=== PATIENT | male | born 1955 | race African-American/Black ===

== ENCOUNTER → 2017-12-10 | Outpatient (CLI) | payer OTHER, MEDICAID ==
[~2017-12-10] MED LIST: NS 250 ML IV 250 ML IV ONE
[2017-12-10 08:48] LABS: BASOPHILS # (AUTO) 0.1 X10^3/uL (0.0-0.1); BASOPHILS % (AUTO) 1.8 % (0.2-1.0); EOSINOPHILS # (AUTO) 0.1 x10^3/uL (0.0-0.2); EOSINOPHILS % (AUTO) 1.4 % (0.9-2.9); HEMOGLOBIN 10.1 g/dL (13.5-18.0); LYMPHOCYTES % (AUTO) 20.6 % (21.0-51.0); MEAN CORPUSCULAR HEMOGLOBIN 30.2 pg (27.0-34.0); MEAN CORPUSCULAR HGB CONC 33.7 g/dL (33.0-35.0); MEAN CORPUSCULAR VOLUME 89.6 fL (80.0-100.0); MEAN PLATELET VOLUME 8.2 fL (7.4-11.0); MONOCYTES # (AUTO) 0.6 x10^3/uL (0.3-0.8); MONOCYTES % (AUTO) 11.2 % (0.0-13.0); NEUTROPHILS # (AUTO) 3.3 x10^3/uL (2.2-4.8); PLATELET COUNT 246 X10^3/uL (150.0-450.0); RED BLOOD COUNT 3.35 X10^6/uL (4.7-6.0); RED CELL DISTRIBUTION WIDTH 14.3 % (11.6-16.5)
[2017-12-10 09:11] LABS: PREALBUMIN 14.6 mg/dL (18-35.7)
[2017-12-10 09:19] LABS: ALANINE AMINOTRANSFERASE 23 Units/L (12-78); ALBUMIN 3.2 g/dL (3.4-5.0); ALKALINE PHOSPHATASE 37 Units/L (46-116); ASPARTATE AMINO TRANSFERASE 21 Units/L (15-37); BLOOD UREA NITROGEN 12 mg/dL (7-18); CALCIUM 8.7 mg/dL (8.5-10.1); CARBON DIOXIDE 30.9 mmol/L (21-32); CHLORIDE 99 mmol/L (98-107); COR CA(FOR HYPOALB) 9.3 mg/dL (8.5-10.1); CREATININE 0.98 mg/dL (0.70-1.30); SODIUM 137 mmol/L (136-145); eGFR BLACK RACES > 60 (>60); eGFR NON BLACK RACES > 60 (>60)
--- NOTE | 2017-12-10 11:04 | RAD ---
HISTORY: Chest pain Study: Two views of the chest Comparison: None Findings: The trachea is midline. The cardiac silhouette is unremarkable. The lungs are clear without focal i nfiltrate or effusion. IMPRESSION: 1. No acute cardiopulmonary disease. Reported By:
--- NOTE | 2017-12-10 13:02 | CT ---
HISTORY: Abdominal distension and left-sided pain with weight loss. Study: CT abdomen and pelvis with contrast Comparison: None. Technique: Multiple axial images of the abdomen and pelvis were obtained from the lung bases to the pubic symphy sis after the administration of IV contrast. Dose reduction techniques including Automated Exposure Control (AEC) and adjustment of mA and kV were utilized. Findings: Posterior right lower lobe tree-in-bud opacities. Remaining lung bases are unremarkable. The liver, s pleen, pancreas, kidneys, and adrenal glands are unremarkable in their CT appearance. The gallbladder is unremarkable in its CT appearance. Limited evaluation of the large and small bowel secondary to large amounts of loculated gelatinous material causing displacement and mass effect. No obvious mass to suggest source. The bladder and prostate gland appear normal. Degenerative changes of the spine. No aggressive osseous lesions. 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 However, the appendix is not well identified. Recommend s oft tissue sampling for further characterization. Reported By:
== END ==
LOC: RAD 08:15
PROVIDERS: ATTEND Obstetrics & Gynecology Obstetrics
DX: R63.4 Abnormal weight loss (principal); K43.9 Ventral hernia without obstruction or gangrene
CPT/HCPCS: 36415; 71046; 74160; 80053; 84134; 85025; A4222

== ENCOUNTER → 2017-12-18 | Outpatient (CLI) | payer OTHER, MEDICAID | LOC: LAB 10:40 | PROVIDERS: ATTEND Surgery | DX: D64.9 Anemia, unspecified (principal); R19.00 Intra-abdominal and pelvic swelling, mass and lump, unspecified site; C18.1 Malignant neoplasm of appendix | CPT/HCPCS: 36415; 82378; 86316 ==

== ENCOUNTER 2017-12-28 08:37 | Day surgery (SDC) | payer OTHER, MEDICAID ==
[~2017-12-28 08:37] MED LIST changes: +DIPRIVAN VIAL 20 ML ONE; -NS 250 ML IV 250 ML IV ONE
[2017-12-28] MEDS ORDERED: D5 LR 1000 ML 1,000 ML IV ONE (08:43)
[2017-12-28 10:06] VITALS: BP 116/74
== END 2017-12-28 10:25 | disposition home or self-care (01) ==
LOC: SURG1 08:37
PROVIDERS: ATTEND Surgery
DX: R19.00 Intra-abdominal and pelvic swelling, mass and lump, unspecified site (principal); C78.6 Secondary malignant neoplasm of retroperitoneum and peritoneum; R97.0 Elevated carcinoembryonic antigen [CEA]; K52.89 Other specified noninfective gastroenteritis and colitis
CPT/HCPCS: A4217; J3490; J7120

== ENCOUNTER → 2018-01-10 | Outpatient (CLI) | payer OTHER, MEDICAID ==
[2017-12-28 10:06] VITALS: BP 116/74
[2018-01-10 14:01] LABS: BILIRUBIN,URINE NEGATIVE (NEGATIVE); BLOOD/HEMOGLOBIN,URINE 3+ (NEGATIVE); GLUCOSE, URINE NEGATIVE (NEGATIVE); KETONES,URINE NEGATIVE (NEGATIVE); LEUKOCYTE ESTERASE ,URINE 2+ (NEGATIVE); NITRITES,URINE NEGATIVE (NEGATIVE); PROTEIN,URINE 3+ (NEGATIVE); UROBILINOGEN,URINE NORMAL (NORMAL)
[2018-01-10 14:03] LABS: BASOPHILS % (AUTO) 0.6 % (0.2-1.0); EOSINOPHILS % (AUTO) 0.5 % (0.9-2.9); HEMATOCRIT 33.7 % (42.0-54.0); HEMOGLOBIN 11.5 g/dL (13.5-18.0); LYMPHOCYTES # (AUTO) 0.6 X10^3/uL (1.3-2.9); LYMPHOCYTES % (AUTO) 12.8 % (21.0-51.0); MEAN CORPUSCULAR HEMOGLOBIN 30.9 pg (27.0-34.0); MEAN PLATELET VOLUME 8.1 fL (7.4-11.0); MONOCYTES # (AUTO) 0.4 x10^3/uL (0.3-0.8); MONOCYTES % (AUTO) 8.4 % (0.0-13.0); NEUTROPHILS # (AUTO) 3.6 x10^3/uL (2.2-4.8); NEUTROPHILS % (AUTO) 77.7 % (42.0-75.0); PLATELET COUNT 247 X10^3/uL (150.0-450.0); RED BLOOD COUNT 3.71 X10^6/uL (4.7-6.0); RED CELL DISTRIBUTION WIDTH 14.1 % (11.6-16.5); WHITE BLOOD COUNT 4.6 X10^3/uL (3.6-10.0)
[2018-01-10 14:14] LABS: ALANINE AMINOTRANSFERASE 23 Units/L (12-78); ALBUMIN 3.5 g/dL (3.4-5.0); ALKALINE PHOSPHATASE 48 Units/L (46-116); ASPARTATE AMINO TRANSFERASE 17 Units/L (15-37); BLOOD UREA NITROGEN 20 mg/dL (7-18); CALCIUM 9.6 mg/dL (8.5-10.1); CARBON DIOXIDE 35.9 mmol/L (21-32); CHLORIDE 97 mmol/L (98-107); COR NA(FOR HYPERGLY) 139 mmol/L (136-145); CREATININE 1.19 mg/dL (0.70-1.30); SODIUM 138 mmol/L (136-145); TOTAL PROTEIN 8.7 g/dL (6.4-8.2); eGFR BLACK RACES > 60 (>60); eGFR NON BLACK RACES > 60 (>60)
[2018-01-10 14:20] LABS: APPEARANCE,URINE HAZY (CLEAR); COLOR,URINE YELLOW (YELLOW)
[2018-01-10 14:21] LABS: BACTERIA,URINE TRACE /HPF (NEGATIVE); SQUAMOUS EPITHELIAL CELL,UR FEW /HPF (NEGATIVE)
[2018-01-10 14:24] LABS: MUCUS,URINE MODERATE /HPF (NEGATIVE); TRICHOMONAS,URINE FEW /HPF (NEGATIVE)
== END ==
LOC: LAB 13:23
PROVIDERS: ATTEND Surgery
DX: Z01.818 Encounter for other preprocedural examination (principal); Z01.810 Encounter for preprocedural cardiovascular examination; R19.09 Other intra-abdominal and pelvic swelling, mass and lump; Z79.899 Other long term (current) drug therapy; C67.0 Malignant neoplasm of trigone of bladder
CPT/HCPCS: 36415; 80053; 81001; 85025; 85610; 86850; 86900; 86901; 86922; 87086; 93005; 93010

== ENCOUNTER 2018-01-14 07:34 | Inpatient (IN) | payer OTHER, MEDICAID ==
[2018-01-14] MEDS ORDERED: D5 LR 1000 ML 1,000 ML IV ONE (07:48)
[2018-01-14] MEDS ORDERED: FENTANYL INJ 250 mcg ONE (08:17)
[2018-01-14] MEDS ORDERED: FLAGYL IV PREMIX 500 MG BAG 500 MG/100 ML BAG IV ONE (08:42)
[2018-01-14] MEDS ORDERED: ANCEF 1 GM IV PREMIX* 1 GM/50 ML BAG IV ONE (08:43)
[2018-01-14] MEDS ORDERED: ADRENALINE CHL INJ ONE (09:04)
[2018-01-14] MEDS ORDERED: MARCAINE 0.25% INJ ONE (09:04)
[2018-01-14] MEDS ORDERED: LR 1000 ML IV 1,000 ML IV ONE (09:43)
[2018-01-14] MEDS ORDERED: NS 1000 ML 1,000 ML ONE ×2 (09:47→11:08)
[2018-01-14] MEDS ORDERED: BACITRACIN VIAL ONE (10:03)
[2018-01-14] MEDS ORDERED: REGLAN INJ 10 MG VIAL IVP PRN (10:58)
[2018-01-14] MEDS ORDERED: ZOFRAN INJ 4 MG VIAL IVP PRN (10:58)
[2018-01-14] MEDS ORDERED: PHENERGAN INJ 25 MG IVP PRN (10:58)
[2018-01-14] MEDS ORDERED: BENADRYL INJ 50 MG VIAL IVP PRN (10:58)
[2018-01-14] MEDS ORDERED: DILAUDID INJ IVP PRN (10:58)
[2018-01-14] MEDS ORDERED: NS IRRIGATION 1000 ML 1,000 ML with BACITRACIN VIAL 50,000 UNT IR ONE ×2 (11:35)
[2018-01-14] MEDS ORDERED: NAROPIN EPIDURAL 0.2% 400 MG, NS 250 ML IV 200 ML EPI PRN ×2 (12:00)
[2018-01-14] MEDS ORDERED: Q PUMP EPI ONE (12:00)
[2018-01-14] MEDS ORDERED: NEO-SYNEPHRINE INJ ONE (12:44)
[2018-01-14] MEDS ORDERED: EPHEDRINE SULFATE INJ ONE (12:44)
[2018-01-14] MEDS ORDERED: NORCURON INJ 10 MG VIAL ONE (12:44)
[2018-01-14] MEDS ORDERED: VERSED ONE (12:44)
[2018-01-14] MEDS ORDERED: DIPRIVAN VIAL ONE (12:44)
[2018-01-14] MEDS ORDERED: SUPRANE IN ONE (12:44)
[2018-01-14] MEDS ORDERED: NEOSTIGMINE INJ ONE (12:44)
[2018-01-14] MEDS ORDERED: ROBINUL ONE (12:44)
[2018-01-14] MEDS ORDERED: XYLOCAINE 2 % (PLAIN) ONE (12:44)
[2018-01-14] MEDS ORDERED: QUELICIN (OR ANECTINE) ONE (12:44)
--- NOTE | 2018-01-14 13:20 | OR.GENERIC ---
Post-Op Note Generic - Post-Op Note Operative Report: exploratory laparotomy , evacuation of large pseudomyxoma . peritoneal Bx . closure of enterotomy x 2 findings : extensive carcinomatosis with advanced ca . primary not certain ! appendix or cecum. large Pseudo myxoma . extensive adhesions involving small and large bowel with bowel obstruction at several levels . EBL 200 cc . prognosis is poor . will keep NPO . TPN omcology consult .
--- NOTE | 2018-01-14 13:23 | RAD ---
HISTORY: NG tube placement Study: AP lower chest/upper abdomen Comparison: None Findings: The nasogastric tube tip is in the distal esophagus 2 cm proximal to the gastroesophageal junction. A dvancement is recommended. IMPRESSION: NG tube tip within the distal esophagus just proximal to the gastroesophageal junction. Significant e nhancement is recommended. Reported By:
--- NOTE | 2018-01-14 13:24 | RAD ---
History: PICC line placement Study: Chest single view Findings: Single AP view of the chest is compared to previous study of 12/10/2017. Heart and mediasti nal structures maintain a normal appearance. There appears to been interval placement of a nasogastri c tube however the tip appears to be within the distal esophagus and not within the stomach. A right internal jugular catheter is in place tip of at the caval atrial junction. No PICC line is present. T here is added density in the right infrahilar area new since the previous study which may represent f ocal pneumonia. There are no evident pleural effusions. Impression: Nasogastric tube tip in the distal esophagus. Right internal jugular catheter in appropriate position. Probable limited right infrahilar pneumonia. Reported By:
[2018-01-14] MEDS ORDERED: D5 1/2 NS 1000 ML 1,000 ML IV SCH (14:00)
[2018-01-14] MEDS ORDERED: ANCEF VIAL 1 GM 1 GM in NS 50 ML IV + SPIKE MINIBAG* 50 ML IV SCH (14:00)
[2018-01-14 14:18] LABS: BASOPHILS % (AUTO) 0.3 % (0.2-1.0); EOSINOPHILS % (AUTO) 0.1 % (0.9-2.9); HEMATOCRIT 27.9 % (42.0-54.0); HEMOGLOBIN 9.7 g/dL (13.5-18.0); LYMPHOCYTES # (AUTO) 0.4 X10^3/uL (1.3-2.9); LYMPHOCYTES % (AUTO) 8.5 % (21.0-51.0); MEAN CORPUSCULAR HEMOGLOBIN 31.2 pg (27.0-34.0); MEAN CORPUSCULAR HGB CONC 34.9 g/dL (33.0-35.0); MEAN CORPUSCULAR VOLUME 89.4 fL (80.0-100.0); MEAN PLATELET VOLUME 8.2 fL (7.4-11.0); MONOCYTES # (AUTO) 0.2 x10^3/uL (0.3-0.8); MONOCYTES % (AUTO) 3.3 % (0.0-13.0); NEUTROPHILS % (AUTO) 87.8 % (42.0-75.0); PLATELET COUNT 194 X10^3/uL (150.0-450.0); RED BLOOD COUNT 3.12 X10^6/uL (4.7-6.0); RED CELL DISTRIBUTION WIDTH 14.1 % (11.6-16.5); WHITE BLOOD COUNT 4.5 X10^3/uL (3.6-10.0)
[2018-01-14 14:27] LABS: ALANINE AMINOTRANSFERASE 18 Units/L (12-78); ALBUMIN 2.6 g/dL (3.4-5.0); ALKALINE PHOSPHATASE 38 Units/L (46-116); ASPARTATE AMINO TRANSFERASE 14 Units/L (15-37); BLOOD UREA NITROGEN 26 mg/dL (7-18); CALCIUM 8.3 mg/dL (8.5-10.1); CARBON DIOXIDE 34.2 mmol/L (21-32); CHLORIDE 100 mmol/L (98-107); COR CA(FOR HYPOALB) 9.4 mg/dL (8.5-10.1); COR NA(FOR HYPERGLY) 140 mmol/L (136-145); CREATININE 1.02 mg/dL (0.70-1.30); SODIUM 139 mmol/L (136-145); TOTAL PROTEIN 6.7 g/dL (6.4-8.2); eGFR BLACK RACES > 60 (>60); eGFR NON BLACK RACES > 60 (>60)
[2018-01-14] MEDS: LOVENOX INJ 30 MG SYR SC SCH (14:45)
--- NOTE | 2018-01-14 14:55 | RAD ---
HISTORY: NG tube placement Study: ZANA with high center Comparison: 01/14/2018 at 1:12 p.m.. Findings: Nasogastric tube has been advanced with the tip at the level of the greater curvature of the gastric fundus. The side hole is just distal to the EG junction. The tube may be more effective if advanced a nother 10-12 cm. IMPRESSION: NG tube as described. The tube may be more effective if advanced another 10-12 cm. Reported By:
[2018-01-14] MEDS: D5 1/2 NS + KCL 20 MEQ/L 1,000 ML IV SCH (14:57)
[2018-01-14] MEDS: ANCEF VIAL 1 GM 1 GM in NS 100 ML IV + SPIKE MINIBAG* 100 ML IV SCH ×2 (14:57→21:43)
[2018-01-14] MEDS: NS 1000 ML 1,000 ML IV SCH ×2 (14:58→21:48)
[2018-01-14] MEDS: DILAUDID INJ IVP PRN (15:51)
[2018-01-14] MEDS ORDERED: CLEOCIN VIAL 600 MG 900 MG in D5W 50 ML IV 50 ML IV ONE (17:06)
[2018-01-14] MEDS ORDERED: CLEOCIN 300 MG IV PREMIX 300 MG/50 ML BAG IV ONE (17:16)
[2018-01-14] MEDS ORDERED: PHARMACY CONSULT - TPN XX SCH (20:00)
[2018-01-15] MEDS: CLEOCIN 600 MG IV PREMIX 600 MG/50 ML BAG IV SCH ×4 (02:08→20:00)
[2018-01-15] MEDS: D5 1/2 NS + KCL 20 MEQ/L 1,000 ML IV SCH ×2 (02:09→15:46)
[2018-01-15] MEDS: DILAUDID INJ IVP PRN ×3 (02:41→19:54)
[2018-01-15] MEDS: ANCEF VIAL 1 GM 1 GM in NS 100 ML IV + SPIKE MINIBAG* 100 ML IV SCH ×3 (05:29→21:20)
[2018-01-15] MEDS: NS 1000 ML 1,000 ML IV SCH ×3 (05:29→22:11)
[2018-01-15 06:06] LABS: BASOPHILS % (AUTO) 0.4 % (0.2-1.0); HEMOGLOBIN 10.7 g/dL (13.5-18.0); LYMPHOCYTES # (AUTO) 0.3 X10^3/uL (1.3-2.9); LYMPHOCYTES % (AUTO) 2.7 % (21.0-51.0); MEAN CORPUSCULAR HEMOGLOBIN 30.9 pg (27.0-34.0); MEAN CORPUSCULAR HGB CONC 34.6 g/dL (33.0-35.0); MEAN CORPUSCULAR VOLUME 89.4 fL (80.0-100.0); MEAN PLATELET VOLUME 8.3 fL (7.4-11.0); MONOCYTES # (AUTO) 0.6 x10^3/uL (0.3-0.8); MONOCYTES % (AUTO) 5.2 % (0.0-13.0); NEUTROPHILS # (AUTO) 10.2 x10^3/uL (2.2-4.8); NEUTROPHILS % (AUTO) 91.7 % (42.0-75.0); PLATELET COUNT 208 X10^3/uL (150.0-450.0); RED BLOOD COUNT 3.47 X10^6/uL (4.7-6.0); RED CELL DISTRIBUTION WIDTH 13.9 % (11.6-16.5); WHITE BLOOD COUNT 11.1 X10^3/uL (3.6-10.0)
--- NOTE | 2018-01-15 06:26 | RAD ---
HISTORY: Follow-up pneumonia Study: Chest AP portable Comparison: 01/14/2018 Findings: There is a right IJ line in good position. The heart is within normal limits in size. The mckinley are no rmal. The lungs are mildly hypo inflated. Right basilar lung infiltrate is unchanged. The remainder o f the lung arriaga are clear. The bony thorax is unremarkable. IMPRESSION: Hypo inflation No change right basilar lung infiltrate Reported By:
[2018-01-15 06:30] LABS: BAND NEUTROPHILS % 7 % (0-10); PLATELET MORPHOLOGY COMMENT NORMAL (NORMAL)
[2018-01-15 06:36] LABS: ALANINE AMINOTRANSFERASE 15 Units/L (12-78); ALBUMIN 2.4 g/dL (3.4-5.0); ALKALINE PHOSPHATASE 36 Units/L (46-116); ASPARTATE AMINO TRANSFERASE 14 Units/L (15-37); BLOOD UREA NITROGEN 21 mg/dL (7-18); CALCIUM 8.4 mg/dL (8.5-10.1); CARBON DIOXIDE 30.9 mmol/L (21-32); CHLORIDE 102 mmol/L (98-107); COR CA(FOR HYPOALB) 9.7 mg/dL (8.5-10.1); COR NA(FOR HYPERGLY) 139 mmol/L (136-145); CREATININE 1.07 mg/dL (0.70-1.30); SODIUM 138 mmol/L (136-145); TOTAL PROTEIN 6.6 g/dL (6.4-8.2); eGFR BLACK RACES > 60 (>60); eGFR NON BLACK RACES > 60 (>60)
[2018-01-15] MEDS: LIPOSYN III 20% IV SCH ×2 (07:43→10:48)
[2018-01-15] MEDS: PROCALAMINE 3 % 1,000 ML IV SCH (09:21)
--- NOTE | 2018-01-15 10:01 | DR.PROGNOT ---
Hospital Progress Notes - Progress Note for Day of: Progress Note Date: 01/15/18 - Chief Complaint Chief Complaint: PO exploratory laparotomy , drainage of pseudomyxoma , closure of enterotomy for carcinomatosis and bowel obstruction . feeling better today with less pain .. minimal drainage in KIM . - Past Medical Family Social History Allergies: Allergies No Known Drug Allergies Allergy (Verified 12/28/17 08:47) - Vital Signs Vital Signs: Temperature 97.6 F Pulse Rate [Apical] 88 Pulse Rate 78 Respiratory Rate 16 Blood Pressure [Left Arm] 104/61 Blood Pressure 110/72 O2 Sat by Pulse Oximetry 100 - Physical Exam Oriented: Normal Eyes: Normal Ear: Normal Nose: Normal Throat: Normal Respiratory: Normal GI:Auscultation: Decreased GI:Palpation: Other GI: Tenderness: Moderate (mild generalized tenderness and distention , BS hypoactive) Mood Description: Calm Speech Pattern: Clear, Appropriate - Laboratory and Diagnostics Result Diagrams: 01/15/18 05:30 01/15/18 05:30 Labs: 01/14/18 13:00 Abdomen - Preliminary 01/14/18 11:35 Abdomen Gram Stain - Final Laboratory WBC 11.1 X10^3/uL (3.6-10.0) H 01/15/18 05:30 RBC 3.47 X10^6/uL (4.7-6.0) L 01/15/18 05:30 Hgb 10.7 g/dL (13.5-18.0) L 01/15/18 05:30 Hct 31.0 % (42.0-54.0) L 01/15/18 05:30 MCV 89.4 fL (80.0-100.0) 01/15/18 05:30 MCH 30.9 pg (27.0-34.0) 01/15/18 05:30 MCHC 34.6 g/dL (33.0-35.0) 01/15/18 05:30 RDW 13.9 % (11.6-16.5) 01/15/18 05:30 Plt Count 208 X10^3/uL (150.0-450.0) 01/15/18 05:30 Plt Count Comment Adequate (ADEQUATE) 01/15/18 05:30 MPV 8.3 fL (7.4-11.0) 01/15/18 05:30 Neut % (Auto) 91.7 % (42.0-75.0) H 01/15/18 05:30 Lymph % (Auto) 2.7 % (21.0-51.0) L 01/15/18 05:30 [place] % (Auto) 5.2 % (0.0-13.0) 01/15/18 05:30 Eos % (Auto) 0.0 % (0.9-2.9) L 01/15/18 05:30 Baso % (Auto) 0.4 % (0.2-1.0) 01/15/18 05:30 Neut # (Auto) 10.2 x10^3/uL (2.2-4.8) H 01/15/18 05:30 Lymph # (Auto) 0.3 X10^3/uL (1.3-2.9) L 01/15/18 05:30 [place] # (Auto) 0.6 x10^3/uL (0.3-0.8) 01/15/18 05:30 Eos # (Auto) 0.0 x10^3/uL (0.0-0.2) 01/15/18 05:30 Baso # (Auto) 0.0 X10^3/uL (0.0-0.1) 01/15/18 05:30 Absolute Nucleated RBC 0.0 /100WBC 01/15/18 05:30 Total Counted 100 01/15/18 05:30 Neutrophils % (Manual) 82 % (39-76) H 01/15/18 05:30 Band Neutrophils % 7 % (0-10) 01/15/18 05:30 Lymphocytes % (Manual) 6 % (13-43) L 01/15/18 05:30 Monocytes % (Manual) 5 % (4-9) 01/15/18 05:30 Plt Morphology Comment Normal (NORMAL) 01/15/18 05:30 RBC Morphology Normal (NORMAL) 01/15/18 05:30 Sodium 138 mmol/L (136-145) 01/15/18 05:30 Corrected Sodium 139 mmol/L (136-145) 01/15/18 05:30 Potassium 3.7 mmol/L (3.5-5.1) 01/15/18 05:30 Chloride 102 mmol/L (98-107) 01/15/18 05:30 Carbon Dioxide 30.9 mmol/L (21-32) 01/15/18 05:30 BUN 21 mg/dL (7-18) H 01/15/18 05:30 Creatinine 1.07 mg/dL (0.70-1.30) 01/15/18 05:30 Est GFR (MDRD) Af Amer > 60 (>60) 01/15/18 05:30 Est GFR (MDRD) Non-Af > 60 (>60) 01/15/18 05:30 Glucose 140 mg/dL (65-99) H 01/15/18 05:30 Calcium 8.4 mg/dL (8.5-10.1) L 01/15/18 05:30 Corrected Calcium 9.7 mg/dL (8.5-10.1) 01/15/18 05:30 Total Bilirubin 0.40 mg/dL (0.2-1.0) 01/15/18 05:30 AST 14 Units/L (15-37) L 01/15/18 05:30 ALT 15 Units/L (12-78) 01/15/18 05:30 Alkaline Phosphatase 36 Units/L (46-116) L 01/15/18 05:30 Total Protein 6.6 g/dL (6.4-8.2) 01/15/18 05:30 Albumin 2.4 g/dL (3.4-5.0) L 01/15/18 05:30 Globulin 4.2 g/dL (2.5-4.5) 01/15/18 05:30 Albumin/Globulin Ratio 0.6 Ratio (1.1-2.1) L 01/15/18 05:30 Tissue Pathology To follow 01/14/18 12:00 - Assessment and Plan 1: carcinomatosis with pseudo myxoma. SBO secondary to that. will start TPN
[2018-01-16] MEDS: NS 1000 ML 1,000 ML IV SCH ×4 (02:28→22:00)
[2018-01-16] MEDS: CLEOCIN 600 MG IV PREMIX 600 MG/50 ML BAG IV SCH ×4 (02:28→20:37)
[2018-01-16] MEDS: DILAUDID INJ IVP PRN ×3 (05:03→23:30)
[2018-01-16] MEDS: ANCEF VIAL 1 GM 1 GM in NS 100 ML IV + SPIKE MINIBAG* 100 ML IV SCH ×3 (05:03→21:50)
[2018-01-16] MEDS: D5 1/2 NS + KCL 20 MEQ/L 1,000 ML IV SCH (05:03)
[2018-01-16 06:12] LABS: BASOPHILS % (AUTO) 0.5 % (0.2-1.0); EOSINOPHILS % (AUTO) 0.3 % (0.9-2.9); HEMATOCRIT 31.4 % (42.0-54.0); HEMOGLOBIN 10.9 g/dL (13.5-18.0); LYMPHOCYTES # (AUTO) 0.4 X10^3/uL (1.3-2.9); LYMPHOCYTES % (AUTO) 4.4 % (21.0-51.0); MEAN CORPUSCULAR HEMOGLOBIN 31.3 pg (27.0-34.0); MEAN CORPUSCULAR HGB CONC 34.8 g/dL (33.0-35.0); MEAN PLATELET VOLUME 8.5 fL (7.4-11.0); MONOCYTES # (AUTO) 0.6 x10^3/uL (0.3-0.8); MONOCYTES % (AUTO) 6.1 % (0.0-13.0); NEUTROPHILS # (AUTO) 8.4 x10^3/uL (2.2-4.8); NEUTROPHILS % (AUTO) 88.7 % (42.0-75.0); PLATELET COUNT 188 X10^3/uL (150.0-450.0); RED BLOOD COUNT 3.49 X10^6/uL (4.7-6.0); WHITE BLOOD COUNT 9.5 X10^3/uL (3.6-10.0)
[2018-01-16 06:35] LABS: BLOOD UREA NITROGEN 15 mg/dL (7-18); CALCIUM 8.2 mg/dL (8.5-10.1); CARBON DIOXIDE 30.8 mmol/L (21-32); CHLORIDE 100 mmol/L (98-107); CREATININE 0.84 mg/dL (0.70-1.30); SODIUM 135 mmol/L (136-145); eGFR BLACK RACES > 60 (>60); eGFR NON BLACK RACES > 60 (>60)
[2018-01-16] MEDS ORDERED: LIPID EMULSION IV SCH (08:00)
--- NOTE | 2018-01-16 09:12 | DR.PROGNOT ---
Hospital Progress Notes - Progress Note for Day of: Progress Note Date: 01/16/18 - Chief Complaint Chief Complaint: PO exploratory laparotomy , drainage of pseudomyxoma , closure of enterotomy for carcinomatosis and bowel obstruction . feeling better today with less pain .. minimal drainage in KIM . passing flatus , no bowel movement . afebrile with normal wbc . - Past Medical Family Social History Allergies: Allergies No Known Drug Allergies Allergy (Verified 12/28/17 08:47) - Vital Signs Vital Signs: Temperature 98.1 F Pulse Rate [Apical] 93 Pulse Rate 78 Respiratory Rate 15 Blood Pressure [Left Arm] 128/75 Blood Pressure 110/72 O2 Sat by Pulse Oximetry 100 - Physical Exam Oriented: Normal Eyes: Normal Ear: Normal Nose: Normal Throat: Normal Respiratory: Normal Cardiovascular: Normal : Normal GI:Auscultation: Decreased GI: Tenderness: Moderate (mild generalized tenderness and distention , BS hypoactive) Mood Description: Calm Speech Pattern: Clear, Appropriate - Laboratory and Diagnostics Result Diagrams: 01/16/18 05:42 01/16/18 05:42 Labs: 01/14/18 13:00 Abdomen - Preliminary 01/14/18 11:35 Abdomen Gram Stain - Final Laboratory WBC 9.5 X10^3/uL (3.6-10.0) 01/16/18 05:42 RBC 3.49 X10^6/uL (4.7-6.0) L 01/16/18 05:42 Hgb 10.9 g/dL (13.5-18.0) L 01/16/18 05:42 Hct 31.4 % (42.0-54.0) L 01/16/18 05:42 MCV 90.0 fL (80.0-100.0) 01/16/18 05:42 MCH 31.3 pg (27.0-34.0) 01/16/18 05:42 MCHC 34.8 g/dL (33.0-35.0) 01/16/18 05:42 RDW 14.0 % (11.6-16.5) 01/16/18 05:42 Plt Count 188 X10^3/uL (150.0-450.0) 01/16/18 05:42 Plt Count Comment Adequate (ADEQUATE) 01/15/18 05:30 MPV 8.5 fL (7.4-11.0) 01/16/18 05:42 Neut % (Auto) 88.7 % (42.0-75.0) H 01/16/18 05:42 Lymph % (Auto) 4.4 % (21.0-51.0) L 01/16/18 05:42 [place] % (Auto) 6.1 % (0.0-13.0) 01/16/18 05:42 Eos % (Auto) 0.3 % (0.9-2.9) L 01/16/18 05:42 Baso % (Auto) 0.5 % (0.2-1.0) 01/16/18 05:42 Neut # (Auto) 8.4 x10^3/uL (2.2-4.8) H 01/16/18 05:42 Lymph # (Auto) 0.4 X10^3/uL (1.3-2.9) L 01/16/18 05:42 [place] # (Auto) 0.6 x10^3/uL (0.3-0.8) 01/16/18 05:42 Eos # (Auto) 0.0 x10^3/uL (0.0-0.2) 01/16/18 05:42 Baso # (Auto) 0.0 X10^3/uL (0.0-0.1) 01/16/18 05:42 Absolute Nucleated RBC 0.1 /100WBC 01/16/18 05:42 Total Counted 100 01/15/18 05:30 Neutrophils % (Manual) 82 % (39-76) H 01/15/18 05:30 Band Neutrophils % 7 % (0-10) 01/15/18 05:30 Lymphocytes % (Manual) 6 % (13-43) L 01/15/18 05:30 Monocytes % (Manual) 5 % (4-9) 01/15/18 05:30 Plt Morphology Comment Normal (NORMAL) 01/15/18 05:30 RBC Morphology Normal (NORMAL) 01/15/18 05:30 Sodium 135 mmol/L (136-145) L 01/16/18 05:42 Corrected Sodium TNP 01/16/18 05:42 Potassium 3.8 mmol/L (3.5-5.1) 01/16/18 05:42 Chloride 100 mmol/L (98-107) 01/16/18 05:42 Carbon Dioxide 30.8 mmol/L (21-32) 01/16/18 05:42 BUN 15 mg/dL (7-18) 01/16/18 05:42 Creatinine 0.84 mg/dL (0.70-1.30) 01/16/18 05:42 Est GFR (MDRD) Af Amer > 60 (>60) 01/16/18 05:42 Est GFR (MDRD) Non-Af > 60 (>60) 01/16/18 05:42 Glucose 101 mg/dL (65-99) H 01/16/18 05:42 Calcium 8.2 mg/dL (8.5-10.1) L 01/16/18 05:42 Corrected Calcium 9.7 mg/dL (8.5-10.1) 01/15/18 05:30 Total Bilirubin 0.40 mg/dL (0.2-1.0) 01/15/18 05:30 AST 14 Units/L (15-37) L 01/15/18 05:30 ALT 15 Units/L (12-78) 01/15/18 05:30 Alkaline Phosphatase 36 Units/L (46-116) L 01/15/18 05:30 Total Protein 6.6 g/dL (6.4-8.2) 01/15/18 05:30 Albumin 2.4 g/dL (3.4-5.0) L 01/15/18 05:30 Globulin 4.2 g/dL (2.5-4.5) 01/15/18 05:30 Albumin/Globulin Ratio 0.6 Ratio (1.1-2.1) L 01/15/18 05:30 Tissue Pathology To follow 01/14/18 12:00 - Assessment and Plan 1: carcinomatosis with pseudo myxoma. SBO secondary to that. on TPN. awaiting final pathology report .
[2018-01-16] MEDS: PROCALAMINE 3 % 1,000 ML IV SCH (09:19)
[2018-01-16] MEDS: LIPOSYN III 20% IV SCH (09:35)
[2018-01-16 11:07] VITALS: BMI 22.8
[2018-01-16 15:36] LABS: ALANINE AMINOTRANSFERASE 13 Units/L (12-78); ALBUMIN 2.1 g/dL (3.4-5.0); ALKALINE PHOSPHATASE 39 Units/L (46-116); ASPARTATE AMINO TRANSFERASE 18 Units/L (15-37); COR CA(FOR HYPOALB) 9.7 mg/dL (8.5-10.1)
[2018-01-16 15:39] LABS: TOTAL PROTEIN 6.5 g/dL (6.4-8.2)
[2018-01-17] MEDS: CLEOCIN 600 MG IV PREMIX 600 MG/50 ML BAG IV SCH ×2 (03:50→08:51)
[2018-01-17] MEDS: NS 1000 ML 1,000 ML IV SCH ×5 (04:47→15:17)
[2018-01-17 05:48] LABS: BASOPHILS % (AUTO) 0.6 % (0.2-1.0); EOSINOPHILS # (AUTO) 0.1 x10^3/uL (0.0-0.2); HEMATOCRIT 32.8 % (42.0-54.0); HEMOGLOBIN 11.1 g/dL (13.5-18.0); LYMPHOCYTES # (AUTO) 0.6 X10^3/uL (1.3-2.9); LYMPHOCYTES % (AUTO) 9.3 % (21.0-51.0); MEAN CORPUSCULAR HEMOGLOBIN 30.3 pg (27.0-34.0); MEAN CORPUSCULAR HGB CONC 33.8 g/dL (33.0-35.0); MEAN CORPUSCULAR VOLUME 89.7 fL (80.0-100.0); MEAN PLATELET VOLUME 8.7 fL (7.4-11.0); MONOCYTES # (AUTO) 0.5 x10^3/uL (0.3-0.8); MONOCYTES % (AUTO) 8.1 % (0.0-13.0); PLATELET COUNT 192 X10^3/uL (150.0-450.0); RED BLOOD COUNT 3.65 X10^6/uL (4.7-6.0); RED CELL DISTRIBUTION WIDTH 14.1 % (11.6-16.5); WHITE BLOOD COUNT 6.2 X10^3/uL (3.6-10.0)
[2018-01-17 06:03] LABS: ALANINE AMINOTRANSFERASE 22 Units/L (12-78); ALBUMIN 2.2 g/dL (3.4-5.0); ALKALINE PHOSPHATASE 40 Units/L (46-116); ASPARTATE AMINO TRANSFERASE 16 Units/L (15-37); BLOOD UREA NITROGEN 16 mg/dL (7-18); CALCIUM 8.3 mg/dL (8.5-10.1); CHLORIDE 102 mmol/L (98-107); COR CA(FOR HYPOALB) 9.7 mg/dL (8.5-10.1); SODIUM 136 mmol/L (136-145); TOTAL PROTEIN 6.8 g/dL (6.4-8.2); eGFR BLACK RACES > 60 (>60); eGFR NON BLACK RACES > 60 (>60)
[2018-01-17] MEDS: ANCEF VIAL 1 GM 1 GM in NS 100 ML IV + SPIKE MINIBAG* 100 ML IV SCH (06:13)
--- NOTE | 2018-01-17 06:51 | RAD ---
examination: AP chest History: Pneumonia Comparison 01/16/2018 Findings: Continued normal heart size. Improved aeration of the lungs with no definite infiltrate or consolidation at demonstrate. Position of the right jugular line is stable in the right atrium. Enter ic tube has been removed. Impression: Further improvement; no new abnormality demonstrated. Reported By:
[2018-01-17] MEDS ORDERED: LOVENOX INJ 30 MG SYR SC ONE (08:44)
[2018-01-17] MEDS: DILAUDID INJ IVP PRN ×2 (08:47→19:34)
--- NOTE | 2018-01-17 08:48 | DR.PROGNOT ---
Hospital Progress Notes - Progress Note for Day of: Progress Note Date: 01/17/18 - Chief Complaint Chief Complaint: PO exploratory laparotomy , drainage of pseudomyxoma , closure of enterotomy for carcinomatosis and bowel obstruction . feeling better today with less pain .. minimal drainage in KIM . passing flatus , no bowel movement . afebrile with normal wbc . pathology report is pending .. - Past Medical Family Social History Allergies: Allergies No Known Drug Allergies Allergy (Verified 12/28/17 08:47) - Vital Signs Vital Signs: Temperature 98.7 F Pulse Rate [Apical] 91 Pulse Rate 78 Respiratory Rate 12 Blood Pressure [Left Arm] 123/76 Blood Pressure 110/72 O2 Sat by Pulse Oximetry 100 - Physical Exam Oriented: Normal Eyes: Normal Ear: Normal Nose: Normal Throat: Normal Respiratory: Normal Cardiovascular: Normal : Normal GI:Auscultation: Decreased GI:Palpation: Other GI: Tenderness: Moderate (mild generalized tenderness and distention , BS hypoactive) Mood Description: Calm Speech Pattern: Clear, Appropriate - Laboratory and Diagnostics Result Diagrams: 01/17/18 05:15 01/17/18 05:15 Labs: 01/14/18 13:00 Abdomen - Preliminary 01/14/18 11:35 Abdomen Gram Stain - Final Laboratory WBC 6.2 X10^3/uL (3.6-10.0) 01/17/18 05:15 RBC 3.65 X10^6/uL (4.7-6.0) L 01/17/18 05:15 Hgb 11.1 g/dL (13.5-18.0) L 01/17/18 05:15 Hct 32.8 % (42.0-54.0) L 01/17/18 05:15 MCV 89.7 fL (80.0-100.0) 01/17/18 05:15 MCH 30.3 pg (27.0-34.0) 01/17/18 05:15 MCHC 33.8 g/dL (33.0-35.0) 01/17/18 05:15 RDW 14.1 % (11.6-16.5) 01/17/18 05:15 Plt Count 192 X10^3/uL (150.0-450.0) 01/17/18 05:15 Plt Count Comment Adequate (ADEQUATE) 01/15/18 05:30 MPV 8.7 fL (7.4-11.0) 01/17/18 05:15 Neut % (Auto) 81.0 % (42.0-75.0) H 01/17/18 05:15 Lymph % (Auto) 9.3 % (21.0-51.0) L 01/17/18 05:15 [place] % (Auto) 8.1 % (0.0-13.0) 01/17/18 05:15 Eos % (Auto) 1.0 % (0.9-2.9) 01/17/18 05:15 Baso % (Auto) 0.6 % (0.2-1.0) 01/17/18 05:15 Neut # (Auto) 5.0 x10^3/uL (2.2-4.8) H 01/17/18 05:15 Lymph # (Auto) 0.6 X10^3/uL (1.3-2.9) L 01/17/18 05:15 [place] # (Auto) 0.5 x10^3/uL (0.3-0.8) 01/17/18 05:15 Eos # (Auto) 0.1 x10^3/uL (0.0-0.2) 01/17/18 05:15 Baso # (Auto) 0.0 X10^3/uL (0.0-0.1) 01/17/18 05:15 Absolute Nucleated RBC 0.0 /100WBC 01/17/18 05:15 Total Counted 100 01/15/18 05:30 Neutrophils % (Manual) 82 % (39-76) H 01/15/18 05:30 Band Neutrophils % 7 % (0-10) 01/15/18 05:30 Lymphocytes % (Manual) 6 % (13-43) L 01/15/18 05:30 Monocytes % (Manual) 5 % (4-9) 01/15/18 05:30 Plt Morphology Comment Normal (NORMAL) 01/15/18 05:30 RBC Morphology Normal (NORMAL) 01/15/18 05:30 Sodium 136 mmol/L (136-145) 01/17/18 05:15 Corrected Sodium TNP 01/17/18 05:15 Potassium 4.1 mmol/L (3.5-5.1) 01/17/18 05:15 Chloride 102 mmol/L (98-107) 01/17/18 05:15 Carbon Dioxide 28.0 mmol/L (21-32) 01/17/18 05:15 BUN 16 mg/dL (7-18) 01/17/18 05:15 Creatinine 0.80 mg/dL (0.70-1.30) 01/17/18 05:15 Est GFR (MDRD) Af Amer > 60 (>60) 01/17/18 05:15 Est GFR (MDRD) Non-Af > 60 (>60) 01/17/18 05:15 Glucose 105 mg/dL (65-99) H 01/17/18 05:15 Calcium 8.3 mg/dL (8.5-10.1) L 01/17/18 05:15 Corrected Calcium 9.7 mg/dL (8.5-10.1) 01/17/18 05:15 Total Bilirubin 0.30 mg/dL (0.2-1.0) 01/17/18 05:15 AST 16 Units/L (15-37) 01/17/18 05:15 ALT 22 Units/L (12-78) 01/17/18 05:15 Alkaline Phosphatase 40 Units/L (46-116) L 01/17/18 05:15 Total Protein 6.8 g/dL (6.4-8.2) 01/17/18 05:15 Albumin 2.2 g/dL (3.4-5.0) L 01/17/18 05:15 Globulin 4.6 g/dL (2.5-4.5) H 01/17/18 05:15 Albumin/Globulin Ratio 0.5 Ratio (1.1-2.1) L 01/17/18 05:15 Tissue Pathology To follow 01/14/18 12:00 - Assessment and Plan 1: carcinomatosis with pseudo myxoma. SBO secondary to that. on TPN. awaiting final pathology report . to advance diet as tolerated
[2018-01-17] MEDS: LOVENOX INJ 30 MG SYR SC SCH ×2 (08:49→20:45)
[2018-01-17] MEDS: PROCALAMINE 3 % 1,000 ML IV SCH ×2 (08:51→10:37)
[2018-01-17] MEDS: LIPOSYN III 20% IV SCH (08:52)
[2018-01-17] MEDS ORDERED: NAROPIN EPIDURAL 0.2% 400 MG, NS 250 ML IV 200 ML EPI PRN ×2 (13:58)
[2018-01-17] MEDS ORDERED: SALINE 3% 15 ML NEB TX ONE (14:57)
[2018-01-17] MEDS: SALINE 3% 15 ML NEB TX NEB ONE ×2 (15:00→15:35)
[2018-01-18] MEDS: NS 1000 ML 1,000 ML IV SCH ×5 (03:45→21:38)
[2018-01-18] MEDS: DILAUDID INJ IVP PRN ×3 (04:45→20:30)
[2018-01-18 06:44] LABS: BASOPHILS % (AUTO) 0.7 % (0.2-1.0); EOSINOPHILS # (AUTO) 0.1 x10^3/uL (0.0-0.2); EOSINOPHILS % (AUTO) 2.8 % (0.9-2.9); HEMATOCRIT 29.8 % (42.0-54.0); HEMOGLOBIN 10.3 g/dL (13.5-18.0); LYMPHOCYTES # (AUTO) 0.6 X10^3/uL (1.3-2.9); MEAN CORPUSCULAR HGB CONC 34.6 g/dL (33.0-35.0); MEAN CORPUSCULAR VOLUME 89.6 fL (80.0-100.0); MEAN PLATELET VOLUME 8.8 fL (7.4-11.0); MONOCYTES # (AUTO) 0.5 x10^3/uL (0.3-0.8); MONOCYTES % (AUTO) 12.5 % (0.0-13.0); NEUTROPHILS # (AUTO) 3.1 x10^3/uL (2.2-4.8); PLATELET COUNT 196 X10^3/uL (150.0-450.0); RED BLOOD COUNT 3.32 X10^6/uL (4.7-6.0); RED CELL DISTRIBUTION WIDTH 14.2 % (11.6-16.5); WHITE BLOOD COUNT 4.4 X10^3/uL (3.6-10.0)
[2018-01-18 06:55] LABS: ALANINE AMINOTRANSFERASE 12 Units/L (12-78); ALBUMIN 2.1 g/dL (3.4-5.0); ALKALINE PHOSPHATASE 38 Units/L (46-116); ASPARTATE AMINO TRANSFERASE 17 Units/L (15-37); BLOOD UREA NITROGEN 13 mg/dL (7-18); CALCIUM 8.2 mg/dL (8.5-10.1); CHLORIDE 103 mmol/L (98-107); COR CA(FOR HYPOALB) 9.7 mg/dL (8.5-10.1); CREATININE 0.68 mg/dL (0.70-1.30); SODIUM 135 mmol/L (136-145); TOTAL PROTEIN 6.5 g/dL (6.4-8.2); eGFR BLACK RACES > 60 (>60); eGFR NON BLACK RACES > 60 (>60)
[2018-01-18] MEDS: LIPOSYN III 20% IV SCH (08:32)
[2018-01-18] MEDS: LOVENOX INJ 30 MG SYR SC SCH ×2 (08:33→20:30)
[2018-01-18] MEDS: PROCALAMINE 3 % 1,000 ML IV SCH ×2 (08:35→10:21)
--- NOTE | 2018-01-18 14:21 | DR.PROGNOT ---
Hospital Progress Notes - Progress Note for Day of: Progress Note Date: 01/18/18 - Chief Complaint Chief Complaint: PO exploratory laparotomy , drainage of pseudomyxoma , closure of enterotomy for carcinomatosis and bowel obstruction . feeling better today with less pain .. minimal drainage in KIM . passing flatus , no bowel movement . afebrile with normal wbc . pathology report is pending .. - Past Medical Family Social History Allergies: Allergies No Known Drug Allergies Allergy (Verified 12/28/17 08:47) - Vital Signs Vital Signs: Temperature 99.1 F Pulse Rate [Apical] 92 Pulse Rate 78 Respiratory Rate 23 Blood Pressure [Left Arm] 116/75 Blood Pressure 110/72 O2 Sat by Pulse Oximetry 98 - Physical Exam Oriented: Normal Eyes: Normal Ear: Normal Nose: Normal Throat: Normal Respiratory: Normal Cardiovascular: Normal : Normal GI:Auscultation: Decreased GI:Palpation: Other GI: Tenderness: Moderate (mild generalized tenderness and distention , BS hypoactive) Mood Description: Calm Speech Pattern: Clear, Appropriate - Laboratory and Diagnostics Result Diagrams: 01/18/18 06:00 01/18/18 06:00 Labs: 01/17/18 15:49 Sputum - Expectorated Sputum Sputum Culture - Preliminary 01/17/18 15:49 Sputum - Expectorated Sputum - Final 01/14/18 13:00 Abdomen - Preliminary 01/14/18 11:35 Abdomen Gram Stain - Final Laboratory WBC 4.4 X10^3/uL (3.6-10.0) 01/18/18 06:00 RBC 3.32 X10^6/uL (4.7-6.0) L 01/18/18 06:00 Hgb 10.3 g/dL (13.5-18.0) L 01/18/18 06:00 Hct 29.8 % (42.0-54.0) L 01/18/18 06:00 MCV 89.6 fL (80.0-100.0) 01/18/18 06:00 MCH 31.0 pg (27.0-34.0) 01/18/18 06:00 MCHC 34.6 g/dL (33.0-35.0) 01/18/18 06:00 RDW 14.2 % (11.6-16.5) 01/18/18 06:00 Plt Count 196 X10^3/uL (150.0-450.0) 01/18/18 06:00 Plt Count Comment Adequate (ADEQUATE) 01/15/18 05:30 MPV 8.8 fL (7.4-11.0) 01/18/18 06:00 Neut % (Auto) 70.0 % (42.0-75.0) 01/18/18 06:00 Lymph % (Auto) 14.0 % (21.0-51.0) L 01/18/18 06:00 [place] % (Auto) 12.5 % (0.0-13.0) 01/18/18 06:00 Eos % (Auto) 2.8 % (0.9-2.9) 01/18/18 06:00 Baso % (Auto) 0.7 % (0.2-1.0) 01/18/18 06:00 Neut # (Auto) 3.1 x10^3/uL (2.2-4.8) 01/18/18 06:00 Lymph # (Auto) 0.6 X10^3/uL (1.3-2.9) L 01/18/18 06:00 [place] # (Auto) 0.5 x10^3/uL (0.3-0.8) 01/18/18 06:00 Eos # (Auto) 0.1 x10^3/uL (0.0-0.2) 01/18/18 06:00 Baso # (Auto) 0.0 X10^3/uL (0.0-0.1) 01/18/18 06:00 Absolute Nucleated RBC 0.0 /100WBC 01/18/18 06:00 Total Counted 100 01/15/18 05:30 Neutrophils % (Manual) 82 % (39-76) H 01/15/18 05:30 Band Neutrophils % 7 % (0-10) 01/15/18 05:30 Lymphocytes % (Manual) 6 % (13-43) L 01/15/18 05:30 Monocytes % (Manual) 5 % (4-9) 01/15/18 05:30 Plt Morphology Comment Normal (NORMAL) 01/15/18 05:30 RBC Morphology Normal (NORMAL) 01/15/18 05:30 Sodium 135 mmol/L (136-145) L 01/18/18 06:00 Corrected Sodium TNP 01/18/18 06:00 Potassium 3.9 mmol/L (3.5-5.1) 01/18/18 06:00 Chloride 103 mmol/L (98-107) 01/18/18 06:00 Carbon Dioxide 30.0 mmol/L (21-32) 01/18/18 06:00 BUN 13 mg/dL (7-18) 01/18/18 06:00 Creatinine 0.68 mg/dL (0.70-1.30) L 01/18/18 06:00 Est GFR (MDRD) Af Amer > 60 (>60) 01/18/18 06:00 Est GFR (MDRD) Non-Af > 60 (>60) 01/18/18 06:00 Glucose 104 mg/dL (65-99) H 01/18/18 06:00 Calcium 8.2 mg/dL (8.5-10.1) L 01/18/18 06:00 Corrected Calcium 9.7 mg/dL (8.5-10.1) 01/18/18 06:00 Total Bilirubin 0.30 mg/dL (0.2-1.0) 01/18/18 06:00 AST 17 Units/L (15-37) 01/18/18 06:00 ALT 12 Units/L (12-78) 01/18/18 06:00 Alkaline Phosphatase 38 Units/L (46-116) L 01/18/18 06:00 Total Protein 6.5 g/dL (6.4-8.2) 01/18/18 06:00 Albumin 2.1 g/dL (3.4-5.0) L 01/18/18 06:00 Globulin 4.4 g/dL (2.5-4.5) 01/18/18 06:00 Albumin/Globulin Ratio 0.5 Ratio (1.1-2.1) L 01/18/18 06:00 Tissue Pathology To follow 01/14/18 12:00 - Assessment and Plan 1: carcinomatosis with pseudo myxoma. SBO secondary to that. on TPN. will remove KIM in am
[2018-01-19] MEDS: NS 1000 ML 1,000 ML IV SCH ×3 (03:40→14:18)
[2018-01-19] MEDS: DILAUDID INJ IVP PRN ×2 (04:40→12:50)
[2018-01-19 05:24] LABS: BASOPHILS % (AUTO) 0.6 % (0.2-1.0); EOSINOPHILS # (AUTO) 0.1 x10^3/uL (0.0-0.2); EOSINOPHILS % (AUTO) 2.8 % (0.9-2.9); HEMATOCRIT 30.2 % (42.0-54.0); LYMPHOCYTES # (AUTO) 0.5 X10^3/uL (1.3-2.9); LYMPHOCYTES % (AUTO) 11.5 % (21.0-51.0); MEAN CORPUSCULAR HEMOGLOBIN 30.3 pg (27.0-34.0); MEAN CORPUSCULAR HGB CONC 33.3 g/dL (33.0-35.0); MEAN PLATELET VOLUME 8.6 fL (7.4-11.0); MONOCYTES # (AUTO) 0.5 x10^3/uL (0.3-0.8); MONOCYTES % (AUTO) 12.9 % (0.0-13.0); NEUTROPHILS # (AUTO) 2.9 x10^3/uL (2.2-4.8); NEUTROPHILS % (AUTO) 72.2 % (42.0-75.0); PLATELET COUNT 209 X10^3/uL (150.0-450.0); RED BLOOD COUNT 3.32 X10^6/uL (4.7-6.0); RED CELL DISTRIBUTION WIDTH 14.1 % (11.6-16.5)
[2018-01-19 05:41] LABS: ALANINE AMINOTRANSFERASE 13 Units/L (12-78); ALBUMIN 2.2 g/dL (3.4-5.0); ALKALINE PHOSPHATASE 37 Units/L (46-116); ASPARTATE AMINO TRANSFERASE 17 Units/L (15-37); BLOOD UREA NITROGEN 13 mg/dL (7-18); CALCIUM 8.1 mg/dL (8.5-10.1); CARBON DIOXIDE 27.9 mmol/L (21-32); CHLORIDE 101 mmol/L (98-107); COR CA(FOR HYPOALB) 9.5 mg/dL (8.5-10.1); CREATININE 0.73 mg/dL (0.70-1.30); SODIUM 135 mmol/L (136-145); TOTAL PROTEIN 6.7 g/dL (6.4-8.2); eGFR BLACK RACES > 60 (>60); eGFR NON BLACK RACES > 60 (>60)
[2018-01-19] MEDS: ALBUMIN HUMAN 25%- 100ML 100 ML IV SCH (08:44)
[2018-01-19] MEDS: LOVENOX INJ 30 MG SYR SC SCH ×2 (08:44→20:50)
[2018-01-19] MEDS: LIPOSYN III 20% IV SCH (08:44)
[2018-01-19] MEDS: PROCALAMINE 3 % 1,000 ML IV SCH (09:01)
--- NOTE | 2018-01-19 09:11 | DR.PROGNOT ---
Hospital Progress Notes - Progress Note for Day of: Progress Note Date: 01/19/18 - Chief Complaint Chief Complaint: PO exploratory laparotomy , drainage of pseudomyxoma , closure of enterotomy for carcinomatosis and bowel obstruction . tolerating diet . no vausea or vomiting . passing flatus , no bowel movement . afebrile with normal wbc . pathology report is pending .. - Past Medical Family Social History Allergies: Allergies No Known Drug Allergies Allergy (Verified 12/28/17 08:47) - Vital Signs Vital Signs: Temperature 97.7 F Pulse Rate [Apical] 98 Pulse Rate 78 Respiratory Rate 18 Blood Pressure [Left Arm] 124/79 Blood Pressure 110/72 O2 Sat by Pulse Oximetry 98 - Physical Exam Oriented: Normal Eyes: Normal Ear: Normal Nose: Normal Throat: Normal Respiratory: Normal Cardiovascular: Normal : Normal GI:Auscultation: Decreased GI:Palpation: Other GI: Tenderness: Moderate (mild generalized tenderness and distention , BS hypoactive) Mood Description: Calm Speech Pattern: Clear, Appropriate - Laboratory and Diagnostics Result Diagrams: 01/19/18 04:23 01/19/18 04:23 Labs: 01/17/18 15:49 Sputum - Expectorated Sputum Sputum Culture - Preliminary 01/17/18 15:49 Sputum - Expectorated Sputum - Final 01/14/18 13:00 Abdomen - Preliminary 01/14/18 11:35 Abdomen Gram Stain - Final Laboratory WBC 4.0 X10^3/uL (3.6-10.0) 01/19/18 04:23 RBC 3.32 X10^6/uL (4.7-6.0) L 01/19/18 04:23 Hgb 10.0 g/dL (13.5-18.0) L 01/19/18 04:23 Hct 30.2 % (42.0-54.0) L 01/19/18 04:23 MCV 91.0 fL (80.0-100.0) 01/19/18 04:23 MCH 30.3 pg (27.0-34.0) 01/19/18 04:23 MCHC 33.3 g/dL (33.0-35.0) 01/19/18 04:23 RDW 14.1 % (11.6-16.5) 01/19/18 04:23 Plt Count 209 X10^3/uL (150.0-450.0) 01/19/18 04:23 Plt Count Comment Adequate (ADEQUATE) 01/15/18 05:30 MPV 8.6 fL (7.4-11.0) 01/19/18 04:23 Neut % (Auto) 72.2 % (42.0-75.0) 01/19/18 04:23 Lymph % (Auto) 11.5 % (21.0-51.0) L 01/19/18 04:23 [place] % (Auto) 12.9 % (0.0-13.0) 01/19/18 04:23 Eos % (Auto) 2.8 % (0.9-2.9) 01/19/18 04:23 Baso % (Auto) 0.6 % (0.2-1.0) 01/19/18 04:23 Neut # (Auto) 2.9 x10^3/uL (2.2-4.8) 01/19/18 04:23 Lymph # (Auto) 0.5 X10^3/uL (1.3-2.9) L 01/19/18 04:23 [place] # (Auto) 0.5 x10^3/uL (0.3-0.8) 01/19/18 04:23 Eos # (Auto) 0.1 x10^3/uL (0.0-0.2) 01/19/18 04:23 Baso # (Auto) 0.0 X10^3/uL (0.0-0.1) 01/19/18 04:23 Absolute Nucleated RBC 0.0 /100WBC 01/19/18 04:23 Total Counted 100 01/15/18 05:30 Neutrophils % (Manual) 82 % (39-76) H 01/15/18 05:30 Band Neutrophils % 7 % (0-10) 01/15/18 05:30 Lymphocytes % (Manual) 6 % (13-43) L 01/15/18 05:30 Monocytes % (Manual) 5 % (4-9) 01/15/18 05:30 Plt Morphology Comment Normal (NORMAL) 01/15/18 05:30 RBC Morphology Normal (NORMAL) 01/15/18 05:30 Sodium 135 mmol/L (136-145) L 01/19/18 04:23 Corrected Sodium TNP 01/19/18 04:23 Potassium 3.9 mmol/L (3.5-5.1) 01/19/18 04:23 Chloride 101 mmol/L (98-107) 01/19/18 04:23 Carbon Dioxide 27.9 mmol/L (21-32) 01/19/18 04:23 BUN 13 mg/dL (7-18) 01/19/18 04:23 Creatinine 0.73 mg/dL (0.70-1.30) 01/19/18 04:23 Est GFR (MDRD) Af Amer > 60 (>60) 01/19/18 04:23 Est GFR (MDRD) Non-Af > 60 (>60) 01/19/18 04:23 Glucose 97 mg/dL (65-99) 01/19/18 04:23 Calcium 8.1 mg/dL (8.5-10.1) L 01/19/18 04:23 Corrected Calcium 9.5 mg/dL (8.5-10.1) 01/19/18 04:23 Total Bilirubin 0.30 mg/dL (0.2-1.0) 01/19/18 04:23 AST 17 Units/L (15-37) 01/19/18 04:23 ALT 13 Units/L (12-78) 01/19/18 04:23 Alkaline Phosphatase 37 Units/L (46-116) L 01/19/18 04:23 Total Protein 6.7 g/dL (6.4-8.2) 01/19/18 04:23 Albumin 2.2 g/dL (3.4-5.0) L 01/19/18 04:23 Globulin 4.5 g/dL (2.5-4.5) 01/19/18 04:23 Albumin/Globulin Ratio 0.5 Ratio (1.1-2.1) L 01/19/18 04:23 Tissue Pathology To follow 01/14/18 12:00 - Assessment and Plan 1: carcinomatosis with pseudo myxoma. SBO secondary to that. on TPN.
[2018-01-19] MEDS: MIRALAX POWDER (1 DOSE 17GM) PO SCH (11:50)
[2018-01-19] MEDS ORDERED: MORPHINE SULFATE INJ 4 MG IVP PRN (18:29)
[2018-01-19] MEDS ORDERED: DILAUDID PO PRN (21:49)
[2018-01-19] MEDS ORDERED: DILAUDID PO ONE (22:10)
[2018-01-20] MEDS: NS 1000 ML 1,000 ML IV SCH ×2 (02:30→05:38)
[2018-01-20 05:31] LABS: BASOPHILS % (AUTO) 0.6 % (0.2-1.0); EOSINOPHILS # (AUTO) 0.1 x10^3/uL (0.0-0.2); EOSINOPHILS % (AUTO) 2.3 % (0.9-2.9); HEMOGLOBIN 10.2 g/dL (13.5-18.0); LYMPHOCYTES # (AUTO) 0.5 X10^3/uL (1.3-2.9); LYMPHOCYTES % (AUTO) 14.3 % (21.0-51.0); MEAN CORPUSCULAR HGB CONC 34.1 g/dL (33.0-35.0); MEAN CORPUSCULAR VOLUME 90.8 fL (80.0-100.0); MEAN PLATELET VOLUME 8.3 fL (7.4-11.0); MONOCYTES # (AUTO) 0.5 x10^3/uL (0.3-0.8); MONOCYTES % (AUTO) 13.3 % (0.0-13.0); NEUTROPHILS # (AUTO) 2.5 x10^3/uL (2.2-4.8); NEUTROPHILS % (AUTO) 69.5 % (42.0-75.0); PLATELET COUNT 217 X10^3/uL (150.0-450.0); WHITE BLOOD COUNT 3.5 X10^3/uL (3.6-10.0)
[2018-01-20 05:55] LABS: ALANINE AMINOTRANSFERASE 18 Units/L (12-78); ALBUMIN 2.3 g/dL (3.4-5.0); ALKALINE PHOSPHATASE 37 Units/L (46-116); ASPARTATE AMINO TRANSFERASE 19 Units/L (15-37); BLOOD UREA NITROGEN 11 mg/dL (7-18); CALCIUM 8.3 mg/dL (8.5-10.1); CARBON DIOXIDE 29.2 mmol/L (21-32); CHLORIDE 102 mmol/L (98-107); COR CA(FOR HYPOALB) 9.7 mg/dL (8.5-10.1); CREATININE 0.81 mg/dL (0.70-1.30); SODIUM 137 mmol/L (136-145); TOTAL PROTEIN 6.6 g/dL (6.4-8.2); eGFR BLACK RACES > 60 (>60); eGFR NON BLACK RACES > 60 (>60)
--- NOTE | 2018-01-20 08:12 | RAD ---
Examination: Portable AP chest History: SOB Comparison 01/17/2018 Findings: Stable heart size with essentially clear lungs and pleural spaces. Right jugular line exten ds to the cavoatrial junction. There is gaseous distention of the stomach. Impression: No significant change or new abnormality demonstrated. Reported By:
[2018-01-20] MEDS: ALBUMIN HUMAN 25%- 100ML 100 ML IV SCH (09:33)
[2018-01-20] MEDS: PROCALAMINE 3 % 1,000 ML IV SCH (09:34)
[2018-01-20] MEDS: MIRALAX POWDER (1 DOSE 17GM) PO SCH (09:35)
[2018-01-20] MEDS: LIPOSYN III 20% IV SCH (09:41)
[2018-01-20] MEDS: LOVENOX INJ 30 MG SYR SC SCH (09:41)
[2018-01-20 09:58] VITALS: BP 125/77
--- NOTE | 2018-01-20 22:31 | PCM.PROG ---
Progress Note - Progress Note for Day of Date: 01/19/18 - Subjective Subjective: IS BEING TREATED FOR INFILTRATES AND ABDOMINAL PAIN. EXPLORATORY LAPROSCOPY REVEALED MULTIPLE TUMORS IN ABDOMEN. TODAY, HE IS ALERT AND ORIENTED, LYING IN BED ON MORNING ROUNDS. HE REPORTS GENERALIZED WEAKNESS. ON EXAMINATION, HE IS NOTED WITH DIMINISHED LUNG SOUNDS THROUGHOUT. HIS VITALS THIS MORNING ARE 98.3-78-18-98%-113/76. HE REMAINS HEMODYNAMICALLY STABLE THIS MORNING. TODAY, WE WILL ADD ALBUMIN 25% IV DAILY. OTHERWISE, WE WILL CONTINUE WITH CURRENT PLAN OF CARE. WE PLAN TO FOLLOW UP WITH AM LABS AND CONTINUE TO MONITOR PATIENT. - Past Medical Family Social History Past Med/Fam/Surg Hx: No changes since H&P Allergies: Allergies No Known Drug Allergies Allergy (Verified 12/28/17 08:47) - Review of Systems ROS: No change since H&P - Vital Signs and I&O's Vital Signs: Temperature 98.5 F Pulse Rate [Left Brachial] 79 Pulse Rate [Apical] 85 Pulse Rate 78 Respiratory Rate 18 Blood Pressure [Left Arm] 125/77 Blood Pressure 110/72 O2 Sat by Pulse Oximetry 97 Intake and Output: Intake & Output 01/18/18 01/19/18 01/20/18 01/21/18 11:59 11:59 11:59 11:59 Intake Total 4316 3915 3593 Output Total 4491 815 0295 Balance 3046 3235 2168 - Physical Exam Oriented: Normal Eyes: Normal Ear: Normal Nose: Normal Throat: Normal Respiratory: Diminished Cardiovascular: Normal : Normal Auscultation: Bowel Sounds: Decreased Palpation: Normal Tenderness: Moderate (mild generalized tenderness and distention , BS hypoactive ) Skin: Decreased Turgur Musculoskeletal: Normal Mood Description: Calm Speech Pattern: Clear, Appropriate - Laboratory and Diagnostics Result Diagrams: 01/20/18 04:55 01/20/18 04:55 Labs: 01/17/18 15:49 Sputum - Expectorated Sputum Sputum Culture - Final 01/17/18 15:49 Sputum - Expectorated Sputum - Final 01/14/18 13:00 Abdomen - Final 01/14/18 11:35 Abdomen Gram Stain - Final Laboratory WBC 3.5 X10^3/uL (3.6-10.0) L 01/20/18 04:55 RBC 3.30 X10^6/uL (4.7-6.0) L 01/20/18 04:55 Hgb 10.2 g/dL (13.5-18.0) L 01/20/18 04:55 Hct 30.0 % (42.0-54.0) L 01/20/18 04:55 MCV 90.8 fL (80.0-100.0) 01/20/18 04:55 MCH 31.0 pg (27.0-34.0) 01/20/18 04:55 MCHC 34.1 g/dL (33.0-35.0) 01/20/18 04:55 RDW 14.0 % (11.6-16.5) 01/20/18 04:55 Plt Count 217 X10^3/uL (150.0-450.0) 01/20/18 04:55 Plt Count Comment Adequate (ADEQUATE) 01/15/18 05:30 MPV 8.3 fL (7.4-11.0) 01/20/18 04:55 Neut % (Auto) 69.5 % (42.0-75.0) 01/20/18 04:55 Lymph % (Auto) 14.3 % (21.0-51.0) L 01/20/18 04:55 [place] % (Auto) 13.3 % (0.0-13.0) H 01/20/18 04:55 Eos % (Auto) 2.3 % (0.9-2.9) 01/20/18 04:55 Baso % (Auto) 0.6 % (0.2-1.0) 01/20/18 04:55 Neut # (Auto) 2.5 x10^3/uL (2.2-4.8) 01/20/18 04:55 Lymph # (Auto) 0.5 X10^3/uL (1.3-2.9) L 01/20/18 04:55 [place] # (Auto) 0.5 x10^3/uL (0.3-0.8) 01/20/18 04:55 Eos # (Auto) 0.1 x10^3/uL (0.0-0.2) 01/20/18 04:55 Baso # (Auto) 0.0 X10^3/uL (0.0-0.1) 01/20/18 04:55 Absolute Nucleated RBC 0.1 /100WBC 01/20/18 04:55 Total Counted 100 01/15/18 05:30 Neutrophils % (Manual) 82 % (39-76) H 01/15/18 05:30 Band Neutrophils % 7 % (0-10) 01/15/18 05:30 Lymphocytes % (Manual) 6 % (13-43) L 01/15/18 05:30 Monocytes % (Manual) 5 % (4-9) 01/15/18 05:30 Plt Morphology Comment Normal (NORMAL) 01/15/18 05:30 RBC Morphology Normal (NORMAL) 01/15/18 05:30 Sodium 137 mmol/L (136-145) 01/20/18 04:55 Corrected Sodium TNP 01/20/18 04:55 Potassium 3.8 mmol/L (3.5-5.1) 01/20/18 04:55 Chloride 102 mmol/L (98-107) 01/20/18 04:55 Carbon Dioxide 29.2 mmol/L (21-32) 01/20/18 04:55 BUN 11 mg/dL (7-18) 01/20/18 04:55 Creatinine 0.81 mg/dL (0.70-1.30) 01/20/18 04:55 Est GFR (MDRD) Af Amer > 60 (>60) 01/20/18 04:55 Est GFR (MDRD) Non-Af > 60 (>60) 01/20/18 04:55 Glucose 98 mg/dL (65-99) 01/20/18 04:55 Calcium 8.3 mg/dL (8.5-10.1) L 01/20/18 04:55 Corrected Calcium 9.7 mg/dL (8.5-10.1) 01/20/18 04:55 Total Bilirubin 0.30 mg/dL (0.2-1.0) 01/20/18 04:55 AST 19 Units/L (15-37) 01/20/18 04:55 ALT 18 Units/L (12-78) 01/20/18 04:55 Alkaline Phosphatase 37 Units/L (46-116) L 01/20/18 04:55 Total Protein 6.6 g/dL (6.4-8.2) 01/20/18 04:55 Albumin 2.3 g/dL (3.4-5.0) L 01/20/18 04:55 Globulin 4.3 g/dL (2.5-4.5) 01/20/18 04:55 Albumin/Globulin Ratio 0.5 Ratio (1.1-2.1) L 01/20/18 04:55 Tissue Pathology To follow 01/14/18 12:00
== END 2018-01-20 12:15 | disposition home or self-care (01) | DRG 329 ==
LOC: MED/SURG 07:34 → ICU 13:26 → MED/SURG 01-18 15:38
PROVIDERS: ADMIT Surgery; ATTEND Obstetrics & Gynecology Obstetrics
PROC: 0JB80ZX Excision of Abdomen Subcutaneous Tissue and Fascia, Open Approach, Diagnostic (ICD-10-PCS; 2018-01-14)
PROC: 0DSB0ZZ Reposition Ileum, Open Approach (ICD-10-PCS; 2018-01-14)
PROC: 05HM33Z Insertion of Infusion Device into Right Internal Jugular Vein, Percutaneous Approach (ICD-10-PCS; 2018-01-14)
PROC: 0D9670Z Drainage of Stomach with Drainage Device, Via Natural or Artificial Opening (ICD-10-PCS; 2018-01-14)
PROC: 0W9G3ZX Drainage of Peritoneal Cavity, Percutaneous Approach, Diagnostic (ICD-10-PCS; principal; 2018-01-14 09:15)
DX: C78.6 Secondary malignant neoplasm of retroperitoneum and peritoneum (principal); J18.8 Other pneumonia, unspecified organism; K56.51 Intestinal adhesions [bands], with partial obstruction; E87.6 Hypokalemia; R63.4 Abnormal weight loss; D63.8 Anemia in other chronic diseases classified elsewhere; R19.09 Other intra-abdominal and pelvic swelling, mass and lump
CPT/HCPCS: 36415; 36556; 62326; 71045; 74018; 80053; 85025; 87070; 87205; 88305; 88313; 88341; 88342; 94640; A4216; A4222; B5200; P9047; S0020; S0030; S0077; J0077; J0170; J0330; J0690; J1170; J1650; J2001; J2250; J2270; J2370; J2710; J2795; J3010; J3490; J7120

== ENCOUNTER 2018-07-06 08:23 | Inpatient (IN) ==
[2018-07-06 08:30] VITALS: BMI 23.1
[2018-07-06] MEDS ORDERED: ZOFRAN INJ 4 MG VIAL IVP ONE (09:06)
[2018-07-06] MEDS ORDERED: PEPCID 20 MG IV PREMIX* 20 MG/50 ML BAG IV ONE ×2 (09:06→09:21)
--- NOTE | 2018-07-06 09:18 | DR.N/VMALE ---
HPI Time Seen Time seen: 09:00 Primary Care Physician Primary Care Physician: EMMANUEL HPI Comment HPI Comment: ABDOMINAL PAIN, NAUSEA, VOMITING TIMES ONE DAY. NOW HAVING HEADACHE WELL. 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 Complaints Chief Complaint Doctors Comments: ABDOMINAL PAIN, N/V AND HEADACHE TIMES ONE DAY. Chief Complaint:: PT C/O NAUSEA, VOMITTING, ABD PAIN UMBILICUS, AND HEADACHE. PT STATES HE STARTED YESTERDAY AND HE HAS NOT BEEN ABLE TO KEEP ANYTHING DOWN Reviewed Nurses Notes Reviewed: Yes Source History Provided: Patient Mode of Arrival Mode of Arrival: Ambulatory Timing Onset of Chief Complaint: 07/05/18 Context Onset: Spontaneous Recent: None History of: Abdominal Operation Quality Quality: Bilious Associated Signs and Symptoms Abdominal Pain Quality: Sharp Abdominal Pain Location: Diffuse Symptoms: Abdominal Pain and Fever; denies Diarrhea Other History Other History: ALSO HAVING HEADACHE. PMH PMH Past Medical History: Yes Past Medical History: CHF Past Medical History Comment: ABD CA Past Surgical History: Yes Surgical History: Abdominal Surgery Past Surgical History Comment: TUMOR REMOVAL Family History History of Family Medical Conditions: Yes Family Medical History: Diabetes Mellitus and Hypertension Social History Does any household member use tobacco: No Alcohol Use: None Do you use any recreational Drugs:: No Lives With: Family Lives Where: Home infectious screening In the last 2 months have you had wt loss of >10#?: NO Have you had fever, night sweats or hemotysis?: No Have you traveled outside the country in the last 6 months?: No Isolation: Standard ROS Review of Systems Constitutional: Fever, Weakness and Fatigue Eyes: No Symptoms Reported ENTM: No Symptoms Reported Respiratoy: Short of Breath (ON EXERTION) Cardiovascular: No Symptoms Reported Gastrointestinal/Abdominal: Abdominal Pain, Nausea and Vomiting; negative Constipation and Diarrhea Genitourinary: No Symptoms Reported Neurological: Headache Musculoskeletal: No Symptoms Reported Integumentary: No Symptoms Reported Hematologic/Lymphatic: No Symptoms Reported Endocrine: No Symptoms Reported Psychiatric: No Symptoms Reported All Other Systems: Reviewed and Negative PE Vital Signs Vitals: Temperature 98.9 F Pulse Rate 97 Respiratory Rate 18 Blood Pressure [Left Arm] 125/77 Blood Pressure 148/77 O2 Sat by Pulse Oximetry 99 General Limitations: No Limitations General Appearance: Alert and In No Apparent Distress Head Head Exam: Normal Inspection Eyes Eye exam: Normal Appearance ENT ENT Exam: Normal Exam, Normal Oropharynx, Normal External Ear Exam and TM's Normal Bilaterally Neck Neck Exam: Normal Inspection Chest Chest Inspection: Normal Inspection and Symmetric Chest Wall Rise Respiratory Respiratory Exam: Normal Lung Sounds Bilat Respiratory Exam: Bilateral: Rhonchi and Lower: Rhonchi Cardiovascular Cardiovascular Exam: Regular Rate and Normal Rhythm Abdominal Exam Abdominal Exam: Normal Inspection, Normal Bowel Sounds, Soft and Tenderness Abdominal Tenderness: Diffuse and Moderate Rectal Rectal Exam: Deferred Exam: Male: Deferred Extremities Extremities Exam: Normal Inspection Back Back Exam: Normal Inspection Neurologic Neurological Exam: Alert and Oriented X3; negative Motor Sensory Deficit Psychiatric Psychiatric Exam: Normal Affect and Normal Mood Skin Skin Exam: Dry MDM Additional Information Obtained Additional Information Obtained From: Old Records, Family and PCP Differential Diagnosis Differential Diagnosis: Considerations may Include:: Bowel Obstruction, Gastroenteritis, Pancreatitis, PUD, Urinary Tract Infection, Urolithiasis and Other (CA) Differential Diagnosis Comment: CARCINOMATOSIS ABDOMEN, PSEDOMYXOMA PERITONEI, HEADACHE. COURSE Treatment Treatment: SEE ORDERS. Consultation Consultation Comments: DISCUSS PATIENT WITH DR. BENITEZ. HE WILL ADMIT PATIENT. Education/Counseling Education/Counseling: Patient, Family and Education Educated On: Diagnosis ROR Labs Reviewed Laboratory Results Reviewed?: Yes Result Diagrams: 07/06/18 09:40 07/06/18 09:40 Laboratory: WBC 7.8 X10^3/uL (3.6-10.0) 07/06/18 09:40 RBC 3.80 X10^6/uL (4.7-6.0) L 07/06/18 09:40 Hgb 11.1 g/dL (13.5-18.0) L 07/06/18 09:40 Hct 33.2 % (42.0-54.0) L 07/06/18 09:40 MCV 87.2 fL (80.0-100.0) 07/06/18 09:40 MCH 29.1 pg (27.0-34.0) 07/06/18 09:40 MCHC 33.4 g/dL (33.0-35.0) 07/06/18 09:40 RDW 14.9 % (11.6-16.5) 07/06/18 09:40 Plt Count 318 X10^3/uL (150.0-450.0) 07/06/18 09:40 MPV 7.8 fL (7.4-11.0) 07/06/18 09:40 Neut % (Auto) 87.5 % (42.0-75.0) H 07/06/18 09:40 Lymph % (Auto) 6.7 % (21.0-51.0) L 07/06/18 09:40 [place] % (Auto) 5.5 % (0.0-13.0) 07/06/18 09:40 Eos % (Auto) 0.1 % (0.9-2.9) L 07/06/18 09:40 Baso % (Auto) 0.2 % (0.2-1.0) 07/06/18 09:40 Neut # (Auto) 6.8 x10^3/uL (2.2-4.8) H 07/06/18 09:40 Lymph # (Auto) 0.5 X10^3/uL (1.3-2.9) L 07/06/18 09:40 [place] # (Auto) 0.4 x10^3/uL (0.3-0.8) 07/06/18 09:40 Eos # (Auto) 0.0 x10^3/uL (0.0-0.2) 07/06/18 09:40 Baso # (Auto) 0.0 X10^3/uL (0.0-0.1) 07/06/18 09:40 Absolute Nucleated RBC 0.0 /100WBC 07/06/18 09:40 Sodium 137 mmol/L (136-145) 07/06/18 09:40 Corrected Sodium 138 mmol/L (136-145) 07/06/18 09:40 Potassium 3.8 mmol/L (3.5-5.1) 07/06/18 09:40 Chloride 100 mmol/L (98-107) 07/06/18 09:40 Carbon Dioxide 30.5 mmol/L (21-32) 07/06/18 09:40 BUN 11 mg/dL (7-18) 07/06/18 09:40 Creatinine 1.00 mg/dL (0.70-1.30) 07/06/18 09:40 Est GFR (MDRD) Af Amer > 60 (>60) 07/06/18 09:40 Est GFR (MDRD) Non-Af > 60 (>60) 07/06/18 09:40 Glucose 130 mg/dL (65-99) H 07/06/18 09:40 Calcium 9.3 mg/dL (8.5-10.1) 07/06/18 09:40 Corrected Calcium 9.9 mg/dL (8.5-10.1) 07/06/18 09:40 Total Bilirubin 0.30 mg/dL (0.2-1.0) 07/06/18 09:40 AST 15 Units/L (15-37) 07/06/18 09:40 ALT 14 Units/L (12-78) 07/06/18 09:40 Alkaline Phosphatase 60 Units/L (46-116) 07/06/18 09:40 Total Protein 8.7 g/dL (6.4-8.2) H 07/06/18 09:40 Albumin 3.2 g/dL (3.4-5.0) L 07/06/18 09:40 Globulin 5.5 g/dL (2.5-4.5) H 07/06/18 09:40 Albumin/Globulin Ratio 0.6 Ratio (1.1-2.1) L 07/06/18 09:40 Amylase 100 Units/L (25-115) 07/06/18 09:40 Lipase 355 Units/L (73-393) 07/06/18 09:40 Specimen Type Clean catch urine 07/06/18 11:16 Urine Color [place] (YELLOW) 07/06/18 11:16 Urine Appearance Slightly hazy (CLEAR) 07/06/18 11:16 Urine pH 5.0 (5.0 - 8.0) 07/06/18 11:16 Ur Specific [place] 1.030 (1.000-1.030) 07/06/18 11:16 Urine Protein 2+ (NEGATIVE) 07/06/18 11:16 Urine Glucose (UA) Negative (NEGATIVE) 07/06/18 11:16 Urine Ketones Negative (NEGATIVE) 07/06/18 11:16 Urine Occult Blood 3+ (NEGATIVE) 07/06/18 11:16 Urine Nitrite Negative (NEGATIVE) 07/06/18 11:16 Urine Bilirubin Negative (NEGATIVE) 07/06/18 11:16 Urine Urobilinogen Normal (NORMAL) 07/06/18 11:16 Ur Leukocyte Esterase Negative (NEGATIVE) 07/06/18 11:16 Urine RBC 30-50 /HPF (NONE SEEN) 07/06/18 11:16 Urine WBC 3-5 /HPF (NONE SEEN) 07/06/18 11:16 Ur Squamous Epith Cells Moderate /HPF (NEGATIVE) 07/06/18 11:16 Urine Bacteria 1+ /HPF (NEGATIVE) 07/06/18 11:16 Urine Mucus Many /HPF (NEGATIVE) 07/06/18 11:16 Ur Culture Indicated? No/not indicated 07/06/18 11:16 XRAY XRAY Interpreted by: Radiologist XRAY Findings: REPORT DISCUSS WITH PATIENT AND HER DOCTOR. Diagnosis Discharge Problem: Abdominal pain, Partial small bowel obstruction, Pseudomyxoma peritonei, Abdominal carcinomatosis
[2018-07-06] MEDS ORDERED: ZOFRAN INJ 4 MG VIAL ONE (09:22)
[2018-07-06 09:51] LABS: BASOPHILS % (AUTO) 0.2 % (0.2-1.0); EOSINOPHILS % (AUTO) 0.1 % (0.9-2.9); HEMATOCRIT 33.2 % (42.0-54.0); HEMOGLOBIN 11.1 g/dL (13.5-18.0); LYMPHOCYTES # (AUTO) 0.5 X10^3/uL (1.3-2.9); LYMPHOCYTES % (AUTO) 6.7 % (21.0-51.0); MEAN CORPUSCULAR HEMOGLOBIN 29.1 pg (27.0-34.0); MEAN CORPUSCULAR HGB CONC 33.4 g/dL (33.0-35.0); MEAN CORPUSCULAR VOLUME 87.2 fL (80.0-100.0); MEAN PLATELET VOLUME 7.8 fL (7.4-11.0); MONOCYTES # (AUTO) 0.4 x10^3/uL (0.3-0.8); MONOCYTES % (AUTO) 5.5 % (0.0-13.0); NEUTROPHILS # (AUTO) 6.8 x10^3/uL (2.2-4.8); NEUTROPHILS % (AUTO) 87.5 % (42.0-75.0); PLATELET COUNT 318 X10^3/uL (150.0-450.0); RED CELL DISTRIBUTION WIDTH 14.9 % (11.6-16.5); WHITE BLOOD COUNT 7.8 X10^3/uL (3.6-10.0)
[2018-07-06 10:01] LABS: ALANINE AMINOTRANSFERASE 14 Units/L (12-78); ALBUMIN 3.2 g/dL (3.4-5.0); ALKALINE PHOSPHATASE 60 Units/L (46-116); AMYLASE 100 Units/L (25-115); ASPARTATE AMINO TRANSFERASE 15 Units/L (15-37); BLOOD UREA NITROGEN 11 mg/dL (7-18); CALCIUM 9.3 mg/dL (8.5-10.1); CARBON DIOXIDE 30.5 mmol/L (21-32); CHLORIDE 100 mmol/L (98-107); COR CA(FOR HYPOALB) 9.9 mg/dL (8.5-10.1); COR NA(FOR HYPERGLY) 138 mmol/L (136-145); LIPASE 355 Units/L (73-393); SODIUM 137 mmol/L (136-145); TOTAL PROTEIN 8.7 g/dL (6.4-8.2); eGFR NON BLACK RACES > 60 (>60)
--- NOTE | 2018-07-06 10:04 | CT ---
STUDY: CT ABDOMEN AND PELVIS WITHOUT IV AND ORAL CONTRAST HISTORY: Nausea and vomiting. Abdominal pain. Comparison: None. Technique: Multiple axial images of the abdomen and pelvis were obtained from the lung bases to the pubic symphysis without the administration of IV contrast. Findings: The visualized portions of the lung bases are unremarkable. CT abdomen: The gallbladder is not clearly identified. The liver, spleen, pancreas, kidneys, and adre nal glands are normal in appearance. A PEG tube is noted along the anterior abdominal wall extending into the stomach. There is marked dilatation of multiple loops of bowel. There is a very large fluid collection in the left brenna abdomen, which appears connected to a loop of bowel that crosses the midl ine into the right lower quadrant. Details of the terminal ileum and cecum are not clearly defined. Fecal material is noted within the a scending and transverse colon. The descending colon appears nondistended. The appendix is not clearly identified. CT pelvis: The sigmoid colon is normal in appearance. The rectum is normal. The urinary bladder is no rmal. No abnormal fluid collections are identified in the pelvis. There is large cystic structure angelina ntified within the pelvis measuring 6.7 cm. This displaces the sigmoid colon to the right. There is no evidence of acute osseous abnormality. IMPRESSION: 1. Abnormal CT examination of the abdomen and pelvis, dilatation of multiple loops of small bowel. T hese findings are most concerning for small bowel obstruction. Of particular concern is a massively d ilated loop of bowel in the left lower quadrant, which may represent distal ileum, just proximal to t he terminal ileum. 2. Large fluid collection in the left hemipelvis, generating local mass effect upon the sigmoid colon . This is an indeterminate finding, incompletely assessed on this exam. 3. A contrast-enhanced CT with oral and IV contrast is recommended for further evaluation. Reported By:
[2018-07-06] MEDS: NS 1000 ML 1,000 ML IV SCH ×3 (10:08→19:05)
[2018-07-06 11:25] LABS: APPEARANCE,URINE SLIGHTLY HAZY (CLEAR); BILIRUBIN,URINE NEGATIVE (NEGATIVE); BLOOD/HEMOGLOBIN,URINE 3+ (NEGATIVE); COLOR,URINE ORANGE (YELLOW); GLUCOSE, URINE NEGATIVE (NEGATIVE); KETONES,URINE NEGATIVE (NEGATIVE); LEUKOCYTE ESTERASE ,URINE NEGATIVE (NEGATIVE); NITRITES,URINE NEGATIVE (NEGATIVE); PROTEIN,URINE 2+ (NEGATIVE); UROBILINOGEN,URINE NORMAL (NORMAL)
[2018-07-06 11:37] LABS: BACTERIA,URINE 1+ /HPF (NEGATIVE); RBC,URINE 30-50 /HPF (NONE SEEN); SQUAMOUS EPITHELIAL CELL,UR MODERATE /HPF (NEGATIVE)
[2018-07-06 11:38] LABS: MUCUS,URINE MANY /HPF (NEGATIVE)
[2018-07-06] MEDS ORDERED: ZOFRAN INJ 4 MG VIAL IVP PRN (14:30)
--- NOTE | 2018-07-06 15:22 | RAD ---
Examination: KUB History: NG tube placement Findings: A gastrostomy tube is projected over the distal stomach. There is faint definition of a 2nd nasogastric tube, the tip is projected at or near the level of the gastric fundus, probably just bey ond the gastroesophageal junction. There is no coiling of the tube. Impression: NG tube tip appears to be at or just distal to the GE junction. Advancement is hien newton Reported By:
--- NOTE | 2018-07-06 16:24 | RAD ---
HISTORY: NG tube advancement Study: KUB Comparison: 07/06/2018 3:11 p.m. Findings: There is nasogastric tube with its tip and side hole within the stomach. There is a G2 with its tip p rojected over the mid body of the stomach. Precise location cannot be determined without contrast. Th e abdominal gas pattern is nonspecific. IMPRESSION: Nasogastric tube tip and side hole likely within the stomach Reported By:
[2018-07-06] MEDS: PEPCID 20 MG IV PREMIX* 20 MG/50 ML BAG IV SCH ×2 (16:30→22:31)
[2018-07-06] MEDS: ROXANOL ORAL SOLN 20MG UDC PO PRN (17:28)
[2018-07-06 17:30] LABS: BILIRUBIN,URINE NEGATIVE (NEGATIVE); BLOOD/HEMOGLOBIN,URINE 3+ (NEGATIVE); GLUCOSE, URINE NEGATIVE (NEGATIVE); KETONES,URINE NEGATIVE (NEGATIVE); LEUKOCYTE ESTERASE ,URINE NEGATIVE (NEGATIVE); NITRITES,URINE NEGATIVE (NEGATIVE); PROTEIN,URINE 2+ (NEGATIVE); UROBILINOGEN,URINE NORMAL (NORMAL)
[2018-07-06 17:31] LABS: APPEARANCE,URINE HAZY (CLEAR); COLOR,URINE YELLOW (YELLOW)
[2018-07-06 17:36] LABS: BACTERIA,URINE TRACE /HPF (NEGATIVE); MUCUS,URINE MODERATE /HPF (NEGATIVE); RBC,URINE 20-30 /HPF (NONE SEEN); SQUAMOUS EPITHELIAL CELL,UR FEW /HPF (NEGATIVE)
[2018-07-07] MEDS: ROXANOL ORAL SOLN 20MG UDC PO PRN ×3 (03:22→15:41)
[2018-07-07] MEDS: NS 1000 ML 1,000 ML IV SCH ×4 (03:23→18:20)
[2018-07-07 06:15] LABS: BASOPHILS % (AUTO) 0.2 % (0.2-1.0); EOSINOPHILS % (AUTO) 0.1 % (0.9-2.9); HEMATOCRIT 34.3 % (42.0-54.0); HEMOGLOBIN 11.3 g/dL (13.5-18.0); LYMPHOCYTES # (AUTO) 0.5 X10^3/uL (1.3-2.9); LYMPHOCYTES % (AUTO) 7.7 % (21.0-51.0); MEAN CORPUSCULAR HGB CONC 33.1 g/dL (33.0-35.0); MEAN CORPUSCULAR VOLUME 87.5 fL (80.0-100.0); MEAN PLATELET VOLUME 8.5 fL (7.4-11.0); MONOCYTES # (AUTO) 0.6 x10^3/uL (0.3-0.8); MONOCYTES % (AUTO) 10.1 % (0.0-13.0); NEUTROPHILS % (AUTO) 81.9 % (42.0-75.0); PLATELET COUNT 303 X10^3/uL (150.0-450.0); RED BLOOD COUNT 3.92 X10^6/uL (4.7-6.0); RED CELL DISTRIBUTION WIDTH 14.6 % (11.6-16.5); WHITE BLOOD COUNT 6.1 X10^3/uL (3.6-10.0)
[2018-07-07 06:38] LABS: ALANINE AMINOTRANSFERASE 14 Units/L (12-78); ALKALINE PHOSPHATASE 55 Units/L (46-116); ASPARTATE AMINO TRANSFERASE 14 Units/L (15-37); BLOOD UREA NITROGEN 12 mg/dL (7-18); CALCIUM 8.9 mg/dL (8.5-10.1); CARBON DIOXIDE 29.5 mmol/L (21-32); CHLORIDE 101 mmol/L (98-107); COR CA(FOR HYPOALB) 9.7 mg/dL (8.5-10.1); COR NA(FOR HYPERGLY) 139 mmol/L (136-145); CREATININE 0.92 mg/dL (0.70-1.30); SODIUM 139 mmol/L (136-145); TOTAL PROTEIN 8.3 g/dL (6.4-8.2); eGFR NON BLACK RACES > 60 (>60)
[2018-07-07] MEDS: PEPCID 20 MG IV PREMIX* 20 MG/50 ML BAG IV SCH ×2 (08:31→21:00)
[2018-07-07] MEDS ORDERED: ATIVAN TAB 0.5 MG PO PRN (11:58)
[2018-07-07] MEDS ORDERED: MORPHINE SL PRN (11:58)
[2018-07-07] MEDS ORDERED: ZOFRAN TAB 4 MG PO PRN (11:58)
[2018-07-07] MEDS ORDERED: OXYCODONE 10 MG PO PRN (11:58)
--- NOTE | 2018-07-07 14:09 | RAD ---
Examination: Abdomen with PA chest, four views History: Bowel obstruction Comparison 07/06/2018 Findings: PA chest demonstrates normal heart size with no focal pulmonary or pleural lesion. Additional supine and upright views of abdomen demonstrate scattered segments of distended bowel. Dif fuse increase in density is present in the pelvis and flanks suggesting fluid collections. Nasogastri c tube terminates in the gastric fundus. Gastrostomy tube is again noted. No free air is seen. Impression: Intestinal gas pattern consistent with ileus or partial small bowel obstruction. Suspect ascites. Enteric tube positions as noted. No perforation demonstrated. Reported By:
[2018-07-08] MEDS: ROXANOL ORAL SOLN 20MG UDC PO PRN ×6 (02:53→20:42)
[2018-07-08 05:07] LABS: BASOPHILS % (AUTO) 0.8 % (0.2-1.0); EOSINOPHILS % (AUTO) 0.7 % (0.9-2.9); HEMATOCRIT 31.3 % (42.0-54.0); HEMOGLOBIN 10.3 g/dL (13.5-18.0); LYMPHOCYTES # (AUTO) 0.5 X10^3/uL (1.3-2.9); MEAN CORPUSCULAR HEMOGLOBIN 28.6 pg (27.0-34.0); MEAN CORPUSCULAR HGB CONC 32.9 g/dL (33.0-35.0); MEAN CORPUSCULAR VOLUME 86.9 fL (80.0-100.0); MEAN PLATELET VOLUME 8.2 fL (7.4-11.0); MONOCYTES # (AUTO) 0.6 x10^3/uL (0.3-0.8); MONOCYTES % (AUTO) 11.9 % (0.0-13.0); NEUTROPHILS # (AUTO) 3.9 x10^3/uL (2.2-4.8); NEUTROPHILS % (AUTO) 76.6 % (42.0-75.0); PLATELET COUNT 291 X10^3/uL (150.0-450.0); WHITE BLOOD COUNT 5.1 X10^3/uL (3.6-10.0)
[2018-07-08] MEDS: NS 1000 ML 1,000 ML IV SCH ×3 (05:15→18:33)
[2018-07-08 05:19] LABS: ALANINE AMINOTRANSFERASE 12 Units/L (12-78); ALBUMIN 2.6 g/dL (3.4-5.0); ALKALINE PHOSPHATASE 47 Units/L (46-116); ASPARTATE AMINO TRANSFERASE 13 Units/L (15-37); BLOOD UREA NITROGEN 14 mg/dL (7-18); CALCIUM 8.5 mg/dL (8.5-10.1); CARBON DIOXIDE 31.7 mmol/L (21-32); CHLORIDE 103 mmol/L (98-107); COR CA(FOR HYPOALB) 9.6 mg/dL (8.5-10.1); SODIUM 140 mmol/L (136-145); TOTAL PROTEIN 7.4 g/dL (6.4-8.2); eGFR NON BLACK RACES > 60 (>60)
[2018-07-08] MEDS: PEPCID 20 MG IV PREMIX* 20 MG/50 ML BAG IV SCH ×2 (08:03→20:42)
[2018-07-08] MEDS ORDERED: STERILE WATER IRRIGATION IR ONE (13:17)
--- NOTE | 2018-07-08 13:57 | RAD ---
History: Bowel obstruction Study: Acute abdominal series Comparison: Yesterday Findings: The lungs are clear and the heart size is normal. There is no edema or effusion. There are prominent osteophytes about the glenohumeral joints. A large-bore tube overlies the left abdomen, probably a PEG tube. There is no definite free air. Ther e are few air-fluid levels in mildly dilated small bowel. The previously demonstrated nasogastric tub e is been removed. Impression: 1. No evidence for acute cardiopulmonary disease 2. Prominent loops of small bowel with some air-fluid levels that may reflect a partial obstruction Reported By:
--- NOTE | 2018-07-08 16:54 | DR.PROGNOT ---
Hospital Progress Notes - Progress Note for Day of: Progress Note Date: 07/08/18 - Chief Complaint Chief Complaint: abdominal pain is less .. abdominal xray shows ileus vs partial obstruction . moderate NGT drainage . afebrile . - Past Medical Family Social History Past Med/Fam/Surg Hx: No changes since H&P Allergies: Allergies No Known Drug Allergies Allergy (Verified 12/28/17 08:47) - Review Of Systems ROS: No change since H&P - Vital Signs Vital Signs: Temperature 98 F Pulse Rate [Left Brachial] 58 Pulse Rate 97 Respiratory Rate 18 Blood Pressure [Left Arm] 146/67 Blood Pressure 148/77 O2 Sat by Pulse Oximetry 96 - Physical Exam Oriented: Normal Eyes: Normal Ear: Normal Nose: Normal Respiratory: Normal Cardiovascular: Normal GI:Palpation: Other (moderate distention ,full abdomen ) GI: Tenderness: Diffuse, Moderate (no rebound or rigidity ) Speech Pattern: Clear, Appropriate - Laboratory and Diagnostics Result Diagrams: 07/08/18 04:25 07/08/18 04:25 Labs: Laboratory WBC 5.1 X10^3/uL (3.6-10.0) 07/08/18 04:25 RBC 3.60 X10^6/uL (4.7-6.0) L 07/08/18 04:25 Hgb 10.3 g/dL (13.5-18.0) L 07/08/18 04:25 Hct 31.3 % (42.0-54.0) L 07/08/18 04:25 MCV 86.9 fL (80.0-100.0) 07/08/18 04:25 MCH 28.6 pg (27.0-34.0) 07/08/18 04:25 MCHC 32.9 g/dL (33.0-35.0) L 07/08/18 04:25 RDW 15.0 % (11.6-16.5) 07/08/18 04:25 Plt Count 291 X10^3/uL (150.0-450.0) 07/08/18 04:25 MPV 8.2 fL (7.4-11.0) 07/08/18 04:25 Neut % (Auto) 76.6 % (42.0-75.0) H 07/08/18 04:25 Lymph % (Auto) 10.0 % (21.0-51.0) L 07/08/18 04:25 [place] % (Auto) 11.9 % (0.0-13.0) 07/08/18 04:25 Eos % (Auto) 0.7 % (0.9-2.9) L 07/08/18 04:25 Baso % (Auto) 0.8 % (0.2-1.0) 07/08/18 04:25 Neut # (Auto) 3.9 x10^3/uL (2.2-4.8) 07/08/18 04:25 Lymph # (Auto) 0.5 X10^3/uL (1.3-2.9) L 07/08/18 04:25 [place] # (Auto) 0.6 x10^3/uL (0.3-0.8) 07/08/18 04:25 Eos # (Auto) 0.0 x10^3/uL (0.0-0.2) 07/08/18 04:25 Baso # (Auto) 0.0 X10^3/uL (0.0-0.1) 07/08/18 04:25 Absolute Nucleated RBC 0.0 /100WBC 07/08/18 04:25 Sodium 140 mmol/L (136-145) 07/08/18 04:25 Corrected Sodium TNP 07/08/18 04:25 Potassium 3.5 mmol/L (3.5-5.1) 07/08/18 04:25 Chloride 103 mmol/L (98-107) 07/08/18 04:25 Carbon Dioxide 31.7 mmol/L (21-32) 07/08/18 04:25 BUN 14 mg/dL (7-18) 07/08/18 04:25 Creatinine 0.90 mg/dL (0.70-1.30) 07/08/18 04:25 Est GFR (MDRD) Af Amer > 60 (>60) 07/08/18 04:25 Est GFR (MDRD) Non-Af > 60 (>60) 07/08/18 04:25 Glucose 105 mg/dL (65-99) H 07/08/18 04:25 Calcium 8.5 mg/dL (8.5-10.1) 07/08/18 04:25 Corrected Calcium 9.6 mg/dL (8.5-10.1) 07/08/18 04:25 Total Bilirubin 0.40 mg/dL (0.2-1.0) 07/08/18 04:25 AST 13 Units/L (15-37) L 07/08/18 04:25 ALT 12 Units/L (12-78) 07/08/18 04:25 Alkaline Phosphatase 47 Units/L (46-116) 07/08/18 04:25 Total Protein 7.4 g/dL (6.4-8.2) 07/08/18 04:25 Albumin 2.6 g/dL (3.4-5.0) L 07/08/18 04:25 Globulin 4.8 g/dL (2.5-4.5) H 07/08/18 04:25 Albumin/Globulin Ratio 0.5 Ratio (1.1-2.1) L 07/08/18 04:25 Amylase 100 Units/L (25-115) 07/06/18 09:40 Lipase 355 Units/L (73-393) 07/06/18 09:40 Specimen Type Clean catch urine 07/06/18 17:22 Urine Color [place] (YELLOW) 07/06/18 17:22 Urine Appearance Hazy (CLEAR) 07/06/18 17:22 Urine pH 5.0 (5.0 - 8.0) 07/06/18 17:22 Ur Specific [place] 1.030 (1.000-1.030) 07/06/18 17:22 Urine Protein 2+ (NEGATIVE) 07/06/18 17:22 Urine Glucose (UA) Negative (NEGATIVE) 07/06/18 17:22 Urine Ketones Negative (NEGATIVE) 07/06/18 17:22 Urine Occult Blood 3+ (NEGATIVE) 07/06/18 17:22 Urine Nitrite Negative (NEGATIVE) 07/06/18 17:22 Urine Bilirubin Negative (NEGATIVE) 07/06/18 17:22 Urine Urobilinogen Normal (NORMAL) 07/06/18 17:22 Ur Leukocyte Esterase Negative (NEGATIVE) 07/06/18 17:22 Urine RBC 20-30 /HPF (NONE SEEN) 07/06/18 17:22 Urine WBC 0-2 /HPF (NONE SEEN) 07/06/18 17:22 Ur Squamous Epith Cells Few /HPF (NEGATIVE) 07/06/18 17:22 Urine Bacteria Trace /HPF (NEGATIVE) 07/06/18 17:22 Urine Mucus Moderate /HPF (NEGATIVE) 07/06/18 17:22 Ur Culture Indicated? No/not indicated 07/06/18 17:22 - Assessment and Plan 1: partial SBO . 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 abdominal adhesions . NGT was d/c ( pt has gastrostomy tube in place ) . will try to advance his diet slowly . 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
[2018-07-09] MEDS: NS 1000 ML 1,000 ML IV SCH ×3 (02:02→17:02)
[2018-07-09 05:22] LABS: BASOPHILS % (AUTO) 0.3 % (0.2-1.0); EOSINOPHILS # (AUTO) 0.1 x10^3/uL (0.0-0.2); EOSINOPHILS % (AUTO) 1.6 % (0.9-2.9); HEMATOCRIT 30.2 % (42.0-54.0); HEMOGLOBIN 10.1 g/dL (13.5-18.0); LYMPHOCYTES # (AUTO) 0.5 X10^3/uL (1.3-2.9); LYMPHOCYTES % (AUTO) 8.4 % (21.0-51.0); MEAN CORPUSCULAR HGB CONC 33.4 g/dL (33.0-35.0); MEAN CORPUSCULAR VOLUME 86.9 fL (80.0-100.0); MEAN PLATELET VOLUME 8.4 fL (7.4-11.0); MONOCYTES # (AUTO) 0.7 x10^3/uL (0.3-0.8); MONOCYTES % (AUTO) 11.6 % (0.0-13.0); NEUTROPHILS # (AUTO) 4.6 x10^3/uL (2.2-4.8); NEUTROPHILS % (AUTO) 78.1 % (42.0-75.0); PLATELET COUNT 275 X10^3/uL (150.0-450.0); RED BLOOD COUNT 3.47 X10^6/uL (4.7-6.0); RED CELL DISTRIBUTION WIDTH 14.7 % (11.6-16.5); WHITE BLOOD COUNT 5.9 X10^3/uL (3.6-10.0)
[2018-07-09 05:35] LABS: ALANINE AMINOTRANSFERASE 10 Units/L (12-78); ALBUMIN 2.5 g/dL (3.4-5.0); ALKALINE PHOSPHATASE 44 Units/L (46-116); ASPARTATE AMINO TRANSFERASE 12 Units/L (15-37); BLOOD UREA NITROGEN 10 mg/dL (7-18); CALCIUM 8.4 mg/dL (8.5-10.1); CARBON DIOXIDE 30.2 mmol/L (21-32); CHLORIDE 103 mmol/L (98-107); COR CA(FOR HYPOALB) 9.6 mg/dL (8.5-10.1); SODIUM 138 mmol/L (136-145); TOTAL PROTEIN 7.2 g/dL (6.4-8.2); eGFR NON BLACK RACES > 60 (>60)
[2018-07-09] MEDS: ROXANOL ORAL SOLN 20MG UDC PO PRN (06:18)
[2018-07-09] MEDS: PEPCID 20 MG IV PREMIX* 20 MG/50 ML BAG IV SCH ×2 (08:10→20:54)
--- NOTE | 2018-07-09 08:13 | RAD ---
HISTORY: Bowel obstruction Study: KUB Comparison: 07/08/2018 Findings: There is a gastrostomy tube with its tip overlying the stomach. There is no significant small bowel d ilatation on this examination. Multiple gasless areas in the abdomen are likely related to the patien t's known large intra-abdominal fluid collections. No abnormal masses or abnormal calcifications are identified. IMPRESSION: No significant small or large bowel dilatation identified Multiple gasless areas within the abdomen likely reflect the patient's known large intra-abdominal fl uid collections Reported By:
[2018-07-09] MEDS ORDERED: STERILE WATER IRRIGATION IR ONE (08:50)
[2018-07-09] MEDS: ROXICODONE TAB 5 MG PO PRN ×2 (09:44→17:43)
--- NOTE | 2018-07-09 23:56 | DR.PROGNOT ---
Hospital Progress Notes - Progress Note for Day of: Progress Note Date: 07/09/18 - Chief Complaint Chief Complaint: still having abdominal distention with only mild pain .. vomited few times today . no bowel movement today . afebrile . - Past Medical Family Social History Past Med/Fam/Surg Hx: No changes since H&P Allergies: Allergies No Known Drug Allergies Allergy (Verified 12/28/17 08:47) - Review Of Systems ROS: No change since H&P - Vital Signs Vital Signs: Temperature 98.8 F Pulse Rate [Left Brachial] 60 Pulse Rate 97 Respiratory Rate 18 Blood Pressure [Left Arm] 128/73 Blood Pressure 148/77 O2 Sat by Pulse Oximetry 99 - Physical Exam Oriented: Normal Eyes: Normal Ear: Normal Nose: Normal Respiratory: Normal Cardiovascular: Normal GI:Palpation: Other (moderate distention ,full abdomen ) GI: Tenderness: Diffuse, Moderate (no rebound or rigidity ) Speech Pattern: Clear, Appropriate - Laboratory and Diagnostics Result Diagrams: 07/09/18 04:22 07/09/18 04:22 Labs: Laboratory WBC 5.9 X10^3/uL (3.6-10.0) 07/09/18 04:22 RBC 3.47 X10^6/uL (4.7-6.0) L 07/09/18 04:22 Hgb 10.1 g/dL (13.5-18.0) L 07/09/18 04:22 Hct 30.2 % (42.0-54.0) L 07/09/18 04:22 MCV 86.9 fL (80.0-100.0) 07/09/18 04:22 MCH 29.0 pg (27.0-34.0) 07/09/18 04:22 MCHC 33.4 g/dL (33.0-35.0) 07/09/18 04:22 RDW 14.7 % (11.6-16.5) 07/09/18 04:22 Plt Count 275 X10^3/uL (150.0-450.0) 07/09/18 04:22 MPV 8.4 fL (7.4-11.0) 07/09/18 04:22 Neut % (Auto) 78.1 % (42.0-75.0) H 07/09/18 04:22 Lymph % (Auto) 8.4 % (21.0-51.0) L 07/09/18 04:22 [place] % (Auto) 11.6 % (0.0-13.0) 07/09/18 04:22 Eos % (Auto) 1.6 % (0.9-2.9) 07/09/18 04:22 Baso % (Auto) 0.3 % (0.2-1.0) 07/09/18 04:22 Neut # (Auto) 4.6 x10^3/uL (2.2-4.8) 07/09/18 04:22 Lymph # (Auto) 0.5 X10^3/uL (1.3-2.9) L 07/09/18 04:22 [place] # (Auto) 0.7 x10^3/uL (0.3-0.8) 07/09/18 04:22 Eos # (Auto) 0.1 x10^3/uL (0.0-0.2) 07/09/18 04:22 Baso # (Auto) 0.0 X10^3/uL (0.0-0.1) 07/09/18 04:22 Absolute Nucleated RBC 0.0 /100WBC 07/09/18 04:22 Sodium 138 mmol/L (136-145) 07/09/18 04:22 Corrected Sodium TNP 07/09/18 04:22 Potassium 3.7 mmol/L (3.5-5.1) 07/09/18 04:22 Chloride 103 mmol/L (98-107) 07/09/18 04:22 Carbon Dioxide 30.2 mmol/L (21-32) 07/09/18 04:22 BUN 10 mg/dL (7-18) 07/09/18 04:22 Creatinine 0.80 mg/dL (0.70-1.30) 07/09/18 04:22 Est GFR (MDRD) Af Amer > 60 (>60) 07/09/18 04:22 Est GFR (MDRD) Non-Af > 60 (>60) 07/09/18 04:22 Glucose 101 mg/dL (65-99) H 07/09/18 04:22 Calcium 8.4 mg/dL (8.5-10.1) L 07/09/18 04:22 Corrected Calcium 9.6 mg/dL (8.5-10.1) 07/09/18 04:22 Total Bilirubin 0.30 mg/dL (0.2-1.0) 07/09/18 04:22 AST 12 Units/L (15-37) L 07/09/18 04:22 ALT 10 Units/L (12-78) L 07/09/18 04:22 Alkaline Phosphatase 44 Units/L (46-116) L 07/09/18 04:22 Total Protein 7.2 g/dL (6.4-8.2) 07/09/18 04:22 Albumin 2.5 g/dL (3.4-5.0) L 07/09/18 04:22 Globulin 4.7 g/dL (2.5-4.5) H 07/09/18 04:22 Albumin/Globulin Ratio 0.5 Ratio (1.1-2.1) L 07/09/18 04:22 Amylase 100 Units/L (25-115) 07/06/18 09:40 Lipase 355 Units/L (73-393) 07/06/18 09:40 Specimen Type Clean catch urine 07/06/18 17:22 Urine Color Yellow (YELLOW) 07/06/18 17:22 Urine Appearance Hazy (CLEAR) 07/06/18 17:22 Urine pH 5.0 (5.0 - 8.0) 07/06/18 17:22 Ur Specific [place] 1.030 (1.000-1.030) 07/06/18 17:22 Urine Protein 2+ (NEGATIVE) 07/06/18 17:22 Urine Glucose (UA) Negative (NEGATIVE) 07/06/18 17:22 Urine Ketones Negative (NEGATIVE) 07/06/18 17:22 Urine Occult Blood 3+ (NEGATIVE) 07/06/18 17:22 Urine Nitrite Negative (NEGATIVE) 07/06/18 17:22 Urine Bilirubin Negative (NEGATIVE) 07/06/18 17:22 Urine Urobilinogen Normal (NORMAL) 07/06/18 17:22 Ur Leukocyte Esterase Negative (NEGATIVE) 07/06/18 17:22 Urine RBC 20-30 /HPF (NONE SEEN) 07/06/18 17:22 Urine WBC 0-2 /HPF (NONE SEEN) 07/06/18 17:22 Ur Squamous Epith Cells Few /HPF (NEGATIVE) 07/06/18 17:22 Urine Bacteria Trace /HPF (NEGATIVE) 07/06/18 17:22 Urine Mucus Moderate /HPF (NEGATIVE) 07/06/18 17:22 Ur Culture Indicated? No/not indicated 07/06/18 17:22 - Assessment and Plan 1: partial SBO . 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 abdominal adhesions . to keep gastrostomy tube to LIS or just gravity drainage . unfortunately there is no other way to bypass the obstruction . TPN is the only alternative for nutritional support.. 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
[2018-07-10] MEDS: NS 1000 ML 1,000 ML IV SCH (01:22)
[2018-07-10] MEDS: ROXICODONE TAB 5 MG PO PRN (03:41)
[2018-07-10] MEDS: ROXANOL ORAL SOLN 20MG UDC PO PRN ×2 (07:51→10:30)
[2018-07-10] MEDS: PEPCID 20 MG IV PREMIX* 20 MG/50 ML BAG IV SCH (09:00)
[2018-07-10] MEDS ORDERED: LOVENOX INJ 30 MG SYR SC SCH (09:00)
[2018-07-10 12:36] VITALS: BP 164/82
== END 2018-07-10 13:35 | disposition home or self-care (01) | DRG 389 ==
LOC: ER 08:23 → MED/SURG 14:12
PROVIDERS: ADMIT Obstetrics & Gynecology Obstetrics; ATTEND Obstetrics & Gynecology Obstetrics
DX: R10.84 Generalized abdominal pain; C76.2 Malignant neoplasm of abdomen; K56.690 Other partial intestinal obstruction; C78.6 Secondary malignant neoplasm of retroperitoneum and peritoneum; R51 Headache; R11.2 Nausea with vomiting, unspecified
CPT/HCPCS: 36415; 43753; 74000; 74018; 74022; 74176; 80053; 81001; 82150; 83690; 85025; 96365; 96367; 96374; 96375; 99283; 99284; A4216; A4217; A4222; S0028; J1650; J2405; J7030; S0181

== ENCOUNTER 2019-06-11 12:48 | Inpatient (IN) ==
[2019-06-11] MEDS ORDERED: NS 1000 ML 1,000 ML IV ONE ×2 (13:05→15:07)
[2019-06-11] MEDS ORDERED: ZOFRAN INJ 4 MG VIAL IVP ONE (13:05)
[2019-06-11] MEDS ORDERED: ZOFRAN INJ 4 MG VIAL ONE (13:10)
[2019-06-11] MEDS ORDERED: NS 1000 ML 1,000 ML ONE ×2 (13:10→15:25)
[2019-06-11 13:27] LABS: BASOPHILS % (AUTO) 0.1 % (0.2-1.0); HEMATOCRIT 42.6 % (42.0-54.0); HEMOGLOBIN 14.3 g/dL (13.5-18.0); LYMPHOCYTES # (AUTO) 0.6 X10^3/uL (1.3-2.9); LYMPHOCYTES % (AUTO) 5.3 % (21.0-51.0); MEAN CORPUSCULAR HEMOGLOBIN 30.9 pg (27.0-34.0); MEAN CORPUSCULAR HGB CONC 33.6 g/dL (33.0-35.0); MEAN CORPUSCULAR VOLUME 92.1 fL (80.0-100.0); MEAN PLATELET VOLUME 8.5 fL (7.4-11.0); MONOCYTES # (AUTO) 2.4 x10^3/uL (0.3-0.8); MONOCYTES % (AUTO) 19.9 % (0.0-13.0); NEUTROPHILS % (AUTO) 74.7 % (42.0-75.0); PLATELET COUNT 266 X10^3/uL (150.0-450.0); RED BLOOD COUNT 4.63 X10^6/uL (4.7-6.0); RED CELL DISTRIBUTION WIDTH 15.1 % (11.6-16.5); WHITE BLOOD COUNT 12.1 X10^3/uL (3.6-10.0)
--- NOTE | 2019-06-11 13:32 | DR.N/VMALE ---
HPI Time Seen Time Seen by Provider: 06/11/19 13:01 Primary Care Physician Primary Care Physician: EMMANUEL HPI Comment HPI Comment: PATIENT IS 64YR OLD MALE IN ER WITH NAUSEA, VOMITING TIMES 2 DAYS. PATIENT IS NOT HOLDING DOWN FLUID. PATIENT IS WEAK AND DIZZY. SHE IS GETTING WORSE. Complaints Chief Complaint Doctors Comments: PERSISTENT NAUSEA AND VOMITING TIMES 2 DAYS. Chief Complaint:: PT C/O VOMITTING THAT STARTED ON M ONDAY. PT STATES HE HAS NOT BEEN ABLE TO KEEP ANYTHING DOWN AND HE IS JUST "SICK" Reviewed Nurses Notes Reviewed: Yes Source History Provided: Patient Mode of Arrival Mode of Arrival: Ambulatory Timing Onset of Chief Complaint: 06/09/19 Duration Duration: 2D Context Onset: Spontaneous Recent: None History of: None Quality Quality: Food Particles Associated Signs and Symptoms Abdominal Pain Quality: Cramping Abdominal Pain Location: Diffuse Symptoms: Abdominal Pain PMH PMH Past Medical History: Yes Past Medical History: CHF Past Medical History Comment: STOMACH CA Past Surgical History: Yes Surgical History: Abdominal Surgery Family History History of Family Medical Conditions: Yes Family Medical History: Diabetes Mellitus and Hypertension Social History Does any household member use tobacco: No Alcohol Use: None Do you use any recreational Drugs:: No Lives With: Family Lives Where: Home infectious screening In the last 2 months have you had wt loss of >10#?: NO Have you had fever, night sweats or hemotysis?: No Have you traveled outside the country in the last 6 months?: No Isolation: Standard ROS Review of Systems Constitutional: See HPI, Weakness and Fatigue; negative Fever Eyes: No Symptoms Reported and See HPI ENTM: No Symptoms Reported and See HPI Respiratoy: No Symptoms Reported and See HPI; negative Short of Breath and Wheezing Cardiovascular: No Symptoms Reported and See HPI; negative Chest Pain, Edema and Palpitations Gastrointestinal/Abdominal: See HPI, Abdominal Pain, Nausea and Vomiting; negative Constipation and Diarrhea Genitourinary: No Symptoms Reported and See HPI; negative Dysuria, Frequency and Hematuria Neurological: See HPI, Weakness and Dizziness; negative Headache Musculoskeletal: See HPI and Muscle Pain; negative Back Pain Integumentary: See HPI and Dryness; negative Change in Color and Rash Hematologic/Lymphatic: No Symptoms Reported and See HPI; negative Easy Bleeding, Easy Bruising, Swollen Glands and Lymphadenopathy Endocrine: No Symptoms Reported and See HPI; negative Increased Thirst and Increased Urine Psychiatric: No Symptoms Reported and See HPI All Other Systems: Reviewed and Negative PE Vital Signs Vitals: Temperature 98.2 F Pulse Rate [Apical] 115 Pulse Rate 134 Respiratory Rate 23 Blood Pressure [Left Arm] 122/74 Blood Pressure 94/63 O2 Sat by Pulse Oximetry 97 General Limitations: No Limitations General Appearance: Alert and In No Apparent Distress Head Head Exam: Normal Inspection and Atraumatic Eyes Eye exam: Normal Appearance, PERRL and EOMI; negative Scleral Icterus and Conjunctival Injection ENT ENT Exam: Normal Exam, Normal Oropharynx, Normal External Ear Exam and TM's Normal Bilaterally Neck Neck Exam: Normal Inspection and Trachea Midline; negative Tenderness and Lymphadenopathy Chest Chest Inspection: Normal Inspection and Symmetric Chest Wall Rise; negative Tenderness Respiratory Respiratory Exam: Normal Lung Sounds Bilat; negative Accessory Muscle Use, Chest Wall Tenderness and Respiratory Distress Respiratory Exam: Bilateral: Clear to Auscultation Cardiovascular Cardiovascular Exam: Regular Rate, Normal Rhythm and Normal Heart Sounds; negative Systolic Murmur and Diastolic Murmur Abdominal Exam Abdominal Exam: Normal Bowel Sounds, Soft and Tenderness Abdominal Tenderness: Diffuse and Moderate Rectal Rectal Exam: Deferred Exam: Male: Deferred Extremities Extremities Exam: Normal Inspection Back Back Exam: Normal Inspection Neurologic Neurological Exam: Alert, Oriented X3 and CN II-XII Intact; negative Motor Sensory Deficit Psychiatric Psychiatric Exam: Normal Affect and Normal Mood Skin Skin Exam: Dry MDM Differential Diagnosis Differential Diagnosis: Considerations may Include:: Cholecystitis, Gastritis, Gastroenteritis, Inflammatory BD, Pancreatitis, Urinary Tract Infection and Urolithiasis COURSE Treatment Treatment: SEE ORDERS. NS IV BOLUS, ZOFRAN 4MG IV, ZOSYN 1GM IVPB. Reevaluation 1st: Improved Education/Counseling Education/Counseling: Patient Educated On: Diagnosis and Needs for Follow Up ROR Labs Reviewed Laboratory Results Reviewed?: Yes Result Diagrams: 06/15/19 03:55 06/15/19 03:55 Laboratory: 06/11/19 13:05 Blood Blood Culture - Final 06/11/19 13:11 Blood Blood Culture - Final WBC 12.1 X10^3/uL (3.6-10.0) H 06/11/19 13:05 RBC 4.63 X10^6/uL (4.7-6.0) L 06/11/19 13:05 Hgb 14.3 g/dL (13.5-18.0) 06/11/19 13:05 Hct 42.6 % (42.0-54.0) 06/11/19 13:05 MCV 92.1 fL (80.0-100.0) 06/11/19 13:05 MCH 30.9 pg (27.0-34.0) 06/11/19 13:05 MCHC 33.6 g/dL (33.0-35.0) 06/11/19 13:05 RDW 15.1 % (11.6-16.5) 06/11/19 13:05 Plt Count 266 X10^3/uL (150.0-450.0) 06/11/19 13:05 MPV 8.5 fL (7.4-11.0) 06/11/19 13:05 Neut % (Auto) 74.7 % (42.0-75.0) 06/11/19 13:05 Lymph % (Auto) 5.3 % (21.0-51.0) L 06/11/19 13:05 [place] % (Auto) 19.9 % (0.0-13.0) H 06/11/19 13:05 Eos % (Auto) 0.0 % (0.9-2.9) L 06/11/19 13:05 Baso % (Auto) 0.1 % (0.2-1.0) L 06/11/19 13:05 Neut # (Auto) 9.0 x10^3/uL (2.2-4.8) H 06/11/19 13:05 Lymph # (Auto) 0.6 X10^3/uL (1.3-2.9) L 06/11/19 13:05 [place] # (Auto) 2.4 x10^3/uL (0.3-0.8) H 06/11/19 13:05 Eos # (Auto) 0.0 x10^3/uL (0.0-0.2) 06/11/19 13:05 Baso # (Auto) 0.0 X10^3/uL (0.0-0.1) 06/11/19 13:05 Absolute Nucleated RBC 0.0 /100WBC 06/11/19 13:05 Sodium 132 mmol/L (136-145) L 06/11/19 13:05 Corrected Sodium 133 mmol/L (136-145) L 06/11/19 13:05 Potassium 3.8 mmol/L (3.5-5.1) 06/11/19 13:05 Chloride 93 mmol/L (98-107) L 06/11/19 13:05 Carbon Dioxide 28.8 mmol/L (21-32) 06/11/19 13:05 BUN 40 mg/dL (7-18) H 06/11/19 13:05 Creatinine 2.31 mg/dL (0.70-1.30) H 06/11/19 13:05 Est GFR (MDRD) Af Amer 37 (>60) L 06/11/19 13:05 Est GFR (MDRD) Non-Af 30 (>60) L 06/11/19 13:05 Glucose 152 mg/dL (65-99) H 06/11/19 13:05 Lactic Acid 3.8 mmol/L (0.4-2.0) H 06/11/19 13:05 Calcium 8.9 mg/dL (8.5-10.1) 06/11/19 13:05 Corrected Calcium 9.7 mg/dL (8.5-10.1) 06/11/19 13:05 Total Bilirubin 0.80 mg/dL (0.2-1.0) 06/11/19 13:05 AST 19 Units/L (15-37) 06/11/19 13:05 ALT 19 Units/L (12-78) 06/11/19 13:05 Alkaline Phosphatase 55 Units/L (46-116) 06/11/19 13:05 Total Protein 8.9 g/dL (6.4-8.2) H 06/11/19 13:05 Albumin 3.0 g/dL (3.4-5.0) L 06/11/19 13:05 Globulin 5.9 g/dL (2.5-4.5) H 06/11/19 13:05 Albumin/Globulin Ratio 0.5 Ratio (1.1-2.1) L 06/11/19 13:05 Amylase 45 Units/L (25-115) 06/11/19 13:05 Lipase 80 Units/L (73-393) 06/11/19 13:05 XRAY XRAY Interpreted by: Radiologist XRAY Findings: REPORT NOTED AND DISCUSSED WITH PATIENT. Opioid Opioid Risk Tool Age (Jose box if 16-45): No Total: 0 Total Score Risk Category: Low Risk Copyright: Marcelo PATINO predicting aberrant behaviors Diagnosis Discharge Problem: Partial obstruction of small intestine Aspiration into airway Qualifiers: Encounter type: initial encounter Qualified Code(s): T17.908A - Unspecified foreign body in respiratory tract, part unspecified causing other injury, initial encounter Abdominal pain Qualifiers: Abdominal location: generalized Qualified Code(s): R10.84 - Generalized abdominal pain Instructions Instructions: Abdominal Pain, Adult, [id number] Forms: Excuse From Work or School
[2019-06-11 13:37] LABS: CALCIUM 8.9 mg/dL (8.5-10.1); CARBON DIOXIDE 28.8 mmol/L (21-32); COR CA(FOR HYPOALB) 9.7 mg/dL (8.5-10.1); CREATININE 2.31 mg/dL (0.70-1.30); TOTAL PROTEIN 8.9 g/dL (6.4-8.2)
[2019-06-11 13:40] LABS: LACTIC ACID 3.8 mmol/L (0.4-2.0)
--- NOTE | 2019-06-11 14:15 | CT ---
CT abdomen and pelvis without contrast Indication: Nausea and vomiting Comparison: 07/06/2018 Technique: Multiple axial images of the abdomen and pelvis were obtained from the lung bases to the pubic symphysis without the administration of IV contrast. Coronal and sagittal reformatted images were also provided. Dose reduction techniques including automated exposure control (AEC) and adjustment of mA and kV were utilized. Findings: Overall sensitivity in detection of solid organ injury, mass or inflammatory change along with vascular injury or mesenteric hematoma is severely limited given lack of IV contrast administration. Peribronchial opacities in the right lower lobe consistent with pneumonia or aspiration. Heart size is normal. There is moderate fluid dilatation of the distal esophagus, no definite mass identified within the gastroesophageal junction. There is fluid distention of the small bowel with several areas of non dependent gas within loops of left abdominal small bowel consistent with pneumatosis. Multiple congested loops of small bowel are noted within the mid abdomen. There are decompressed loops of bowel within the right lower quadrant/distal ileum. There is suture material within decompressed loops of small bowel within the lower mid abdomen. The rectum and colon are collapsed. A percutaneous tube is noted and terminates within the distal stomach. The fluid collection within the pelvis measuring approximately 10.6 by 6.9 cm on axial image 75 which is not definitely a loop of bowel in suspicious for likely fluid collection/abscess. Given limitations of a noncontrast examination no focal hepatic lesion. The gallbladder is nondistended. Bile ducts are normal in caliber. The spleen, pancreas and adrenal glands are normal. Neither kidney demonstrates evidence of nephrolithiasis or hydronephrosis. Small amount of fluid is noted within the right lower quadrant with mild mesenteric congestion. Abdominal aorta is normal in caliber with moderate calcified atherosclerotic disease. No definite enlarged abdominal pelvic lymph node. Review of bone windows demonstrates no acute osseous abnormality. Degenerative change are noted within the SI joints bilaterally. Impression: 1.Moderate dilatation of multiple loops of proximal and mid small bowel with associated dilatation of the stomach and distal esophagus consistent with a high-grade obstruction. There is pneumatosis involving several loops of left abdominal small bowel with mesenteric congestion and free fluid within the abdomen highly suspicious for ischemia. Urgent surgical consultation is recommended. 2. Large cystic collection within the pelvis causing mass effect on the sigmoid colon is again noted and not significantly changed from prior examination, this is not definitely a loop of bowel likely representing loculated fluid collection or abscess. 3. Peribronchial thickening and tree-in-bud opacities within the right lower lobe are consistent with pneumonia and/or aspiration. 4. Additional chronic, incidental findings as described above. Reported By:
[2019-06-11] MEDS ORDERED: PROTONIX INJ 40 MG VIAL ONE (16:04)
[2019-06-11] MEDS: PROTONIX INJ 40 MG VIAL IVP SCH ×2 (16:16→22:53)
[2019-06-11] MEDS ORDERED: D5 1/2 NS 1000 ML 1,000 ML ONE (16:37)
[2019-06-11] MEDS ORDERED: ZOSYN VIAL 3.375 GRAMS 3.375 G in NS 100 ML IV + SPIKE MINIBAG* 100 ML IV ONE (17:02)
[2019-06-11] MEDS: D5 1/2 NS 1000 ML 1,000 ML IV SCH (17:11)
[2019-06-11] MEDS ORDERED: ZOSYN VIAL 3.375 GRAMS IV ONE (17:13)
[2019-06-11] MEDS ORDERED: NS 100 ML IV + SPIKE MINIBAG* 100 ML ONE (17:13)
[2019-06-11] MEDS ORDERED: ZOFRAN TAB 4 MG PO PRN (17:17)
[2019-06-11] MEDS ORDERED: VANCOMYCIN HCL 1 G in D5W 250 ML IV 250 ML IV ONE (17:25)
[2019-06-11] MEDS ORDERED: NS 1000 ML 1,000 ML IV SCH (18:00)
[2019-06-11] MEDS ORDERED: ZOFRAN INJ 4 MG VIAL IVP PRN (18:23)
[2019-06-11] MEDS ORDERED: SALINE 3% 15 ML NEB TX NEB ONE (20:06)
[2019-06-11 20:48] VITALS: BMI 25.2
[2019-06-11 21:45] LABS: BILIRUBIN,URINE NEGATIVE (NEGATIVE); BLOOD/HEMOGLOBIN,URINE 5+ (NEGATIVE); GLUCOSE, URINE NEGATIVE (NEGATIVE); KETONES,URINE NEGATIVE (NEGATIVE); LEUKOCYTE ESTERASE ,URINE NEGATIVE (NEGATIVE); NITRITES,URINE NEGATIVE (NEGATIVE); PROTEIN,URINE 3+ (NEGATIVE); UROBILINOGEN,URINE NORMAL (NORMAL)
[2019-06-11 21:51] LABS: APPEARANCE,URINE SLIGHTLY HAZY (CLEAR); COLOR,URINE YELLOW (YELLOW)
[2019-06-11 21:52] LABS: AMORPHOUS SEDIMENT,UR 1+ /HPF (NEGATIVE); BACTERIA,URINE TRACE /HPF (NEGATIVE); SQUAMOUS EPITHELIAL CELL,UR RARE /HPF (NEGATIVE)
[2019-06-11] MEDS: XOPENEX 1.25 MG/3 ML NEBULE NEB SCH ×2 (23:14→23:16)
[2019-06-11] MEDS: ZOSYN VIAL 3.375 GRAMS 3.375 G in NS 100 ML IV + SPIKE MINIBAG* 100 ML IV SCH (23:30)
[2019-06-12] MEDS ORDERED: ZOFRAN INJ 4 MG VIAL ONE (01:23)
[2019-06-12] MEDS: ZOFRAN INJ 4 MG VIAL IVP PRN ×2 (04:02→21:22)
[2019-06-12] MEDS: XOPENEX 1.25 MG/3 ML NEBULE NEB SCH ×4 (05:40→20:23)
[2019-06-12] MEDS: ZOSYN VIAL 3.375 GRAMS 3.375 G in NS 100 ML IV + SPIKE MINIBAG* 100 ML IV SCH ×3 (06:00→21:15)
[2019-06-12 06:32] LABS: BASOPHILS % (AUTO) 0.1 % (0.2-1.0); HEMATOCRIT 38.1 % (42.0-54.0); LYMPHOCYTES # (AUTO) 0.5 X10^3/uL (1.3-2.9); LYMPHOCYTES % (AUTO) 4.5 % (21.0-51.0); MEAN CORPUSCULAR HEMOGLOBIN 31.3 pg (27.0-34.0); MEAN CORPUSCULAR HGB CONC 34.1 g/dL (33.0-35.0); MEAN CORPUSCULAR VOLUME 91.9 fL (80.0-100.0); MEAN PLATELET VOLUME 8.6 fL (7.4-11.0); MONOCYTES # (AUTO) 2.3 x10^3/uL (0.3-0.8); MONOCYTES % (AUTO) 22.2 % (0.0-13.0); NEUTROPHILS # (AUTO) 7.6 x10^3/uL (2.2-4.8); NEUTROPHILS % (AUTO) 73.2 % (42.0-75.0); PLATELET COUNT 231 X10^3/uL (150.0-450.0); RED BLOOD COUNT 4.15 X10^6/uL (4.7-6.0); WHITE BLOOD COUNT 10.5 X10^3/uL (3.6-10.0)
[2019-06-12 06:50] LABS: ALBUMIN 2.4 g/dL (3.4-5.0); CALCIUM 8.4 mg/dL (8.5-10.1); CARBON DIOXIDE 27.1 mmol/L (21-32); COR CA(FOR HYPOALB) 9.7 mg/dL (8.5-10.1); CREATININE 1.55 mg/dL (0.70-1.30); TOTAL PROTEIN 7.8 g/dL (6.4-8.2)
[2019-06-12 07:29] LABS: BAND NEUTROPHILS % 16 % (0-10)
[2019-06-12 07:30] LABS: PLATELET MORPHOLOGY COMMENT NORMAL (NORMAL)
[2019-06-12] MEDS: D5 1/2 NS 1000 ML 1,000 ML IV SCH (07:45)
[2019-06-12] MEDS ORDERED: NS 1000 ML 1,000 ML ONE (09:49)
[2019-06-12] MEDS: NS 1000 ML 1,000 ML IV SCH ×2 (09:53→23:15)
[2019-06-12] MEDS: PROTONIX INJ 40 MG VIAL IVP SCH ×2 (09:54→21:17)
--- NOTE | 2019-06-12 11:20 | DR.PROGNOT ---
Hospital Progress Notes - Progress Note for Day of: Progress Note Date: 06/12/19 - Chief Complaint Chief Complaint: feeling much better today with NPO and tube drainage . large amount of bilious material was drained . no abdominal pain .. no BM yet . afebrile . - Past Medical Family Social History Past Med/Fam/Surg Hx: No changes since H&P Allergies: Allergies No Known Drug Allergies Allergy (Verified 12/28/17 08:47) - Review Of Systems ROS: No change since H&P - Vital Signs Vital Signs: Temperature 98.2 F Pulse Rate [Apical] 111 Pulse Rate 86 Respiratory Rate 19 Blood Pressure [Left Arm] 115/73 Blood Pressure 121/74 O2 Sat by Pulse Oximetry 95 - Physical Exam Oriented: Normal Eyes: Normal Ear: Normal Nose: Normal Throat: Normal Respiratory: Normal Cardiovascular: Normal : Normal GI:Auscultation: Normal GI:Palpation: Other (distended abdomen with solid mass ( known myxoma ) ,non tender ..) GI: Tenderness: Diffuse (mild diffuse tenderness , no reound , no rigidity . BS+) Skin: Normal Musculoskeletal: Normal Psychiatric: Normal Affect: Normal Speech Pattern: Clear, Appropriate - Laboratory and Diagnostics Result Diagrams: 06/12/19 05:30 06/12/19 05:30 Labs: 06/11/19 21:09 Sputum - Expectorated Sputum Sputum Culture - Preliminary 06/11/19 21:09 Sputum - Expectorated Sputum - Final Laboratory WBC 10.5 X10^3/uL (3.6-10.0) H 06/12/19 05:30 RBC 4.15 X10^6/uL (4.7-6.0) L 06/12/19 05:30 Hgb 13.0 g/dL (13.5-18.0) L 06/12/19 05:30 Hct 38.1 % (42.0-54.0) L 06/12/19 05:30 MCV 91.9 fL (80.0-100.0) 06/12/19 05:30 MCH 31.3 pg (27.0-34.0) 06/12/19 05:30 MCHC 34.1 g/dL (33.0-35.0) 06/12/19 05:30 RDW 15.0 % (11.6-16.5) 06/12/19 05:30 Plt Count 231 X10^3/uL (150.0-450.0) 06/12/19 05:30 Plt Count Comment Adequate (ADEQUATE) 06/12/19 05:30 MPV 8.6 fL (7.4-11.0) 06/12/19 05:30 Neut % (Auto) 73.2 % (42.0-75.0) 06/12/19 05:30 Lymph % (Auto) 4.5 % (21.0-51.0) L 06/12/19 05:30 [place] % (Auto) 22.2 % (0.0-13.0) H 06/12/19 05:30 Eos % (Auto) 0.0 % (0.9-2.9) L 06/12/19 05:30 Baso % (Auto) 0.1 % (0.2-1.0) L 06/12/19 05:30 Neut # (Auto) 7.6 x10^3/uL (2.2-4.8) H 06/12/19 05:30 Lymph # (Auto) 0.5 X10^3/uL (1.3-2.9) L 06/12/19 05:30 [place] # (Auto) 2.3 x10^3/uL (0.3-0.8) H 06/12/19 05:30 Eos # (Auto) 0.0 x10^3/uL (0.0-0.2) 06/12/19 05:30 Baso # (Auto) 0.0 X10^3/uL (0.0-0.1) 06/12/19 05:30 Absolute Nucleated RBC 0.0 /100WBC 06/12/19 05:30 Total Counted 100 06/12/19 05:30 Neutrophils % (Manual) 57 % (39-76) 06/12/19 05:30 Band Neutrophils % 16 % (0-10) H 06/12/19 05:30 Lymphocytes % (Manual) 10 % (13-43) L 06/12/19 05:30 Monocytes % (Manual) 15 % (4-9) H 06/12/19 05:30 Eosinophils % (Manual) 2 % (0-6) 06/12/19 05:30 Plt Morphology Comment Normal (NORMAL) 06/12/19 05:30 RBC Morphology Normal (NORMAL) 06/12/19 05:30 Sodium 132 mmol/L (136-145) L 06/12/19 05:30 Corrected Sodium 133 mmol/L (136-145) L 06/12/19 05:30 Potassium 3.9 mmol/L (3.5-5.1) 06/12/19 05:30 Chloride 97 mmol/L (98-107) L 06/12/19 05:30 Carbon Dioxide 27.1 mmol/L (21-32) 06/12/19 05:30 BUN 41 mg/dL (7-18) H 06/12/19 05:30 Creatinine 1.55 mg/dL (0.70-1.30) H 06/12/19 05:30 Est GFR (MDRD) Af Amer 58 (>60) L 06/12/19 05:30 Est GFR (MDRD) Non-Af 48 (>60) L 06/12/19 05:30 Glucose 142 mg/dL (65-99) H 06/12/19 05:30 Lactic Acid 3.8 mmol/L (0.4-2.0) H 06/11/19 13:05 Calcium 8.4 mg/dL (8.5-10.1) L 06/12/19 05:30 Corrected Calcium 9.7 mg/dL (8.5-10.1) 06/12/19 05:30 Total Bilirubin 0.70 mg/dL (0.2-1.0) 06/12/19 05:30 AST 16 Units/L (15-37) 06/12/19 05:30 ALT 16 Units/L (12-78) 06/12/19 05:30 Alkaline Phosphatase 44 Units/L (46-116) L 06/12/19 05:30 Total Protein 7.8 g/dL (6.4-8.2) 06/12/19 05:30 Albumin 2.4 g/dL (3.4-5.0) L 06/12/19 05:30 Globulin 5.4 g/dL (2.5-4.5) H 06/12/19 05:30 Albumin/Globulin Ratio 0.4 Ratio (1.1-2.1) L 06/12/19 05:30 Amylase 45 Units/L (25-115) 06/11/19 13:05 Lipase 80 Units/L (73-393) 06/11/19 13:05 Specimen Type Clean catch urine 06/11/19 21:20 Urine Color Yellow (YELLOW) 06/11/19 21:20 Urine Appearance Slightly hazy (CLEAR) 06/11/19 21:20 Urine pH 5.0 (5.0 - 8.0) 06/11/19 21:20 Ur Specific [place] 1.020 (1.000-1.030) 06/11/19 21:20 Urine Protein 3+ (NEGATIVE) 06/11/19 21:20 Urine Glucose (UA) Negative (NEGATIVE) 06/11/19 21:20 Urine Ketones Negative (NEGATIVE) 06/11/19 21:20 Urine Occult Blood 5+ (NEGATIVE) 06/11/19 21:20 Urine Nitrite Negative (NEGATIVE) 06/11/19 21:20 Urine Bilirubin Negative (NEGATIVE) 06/11/19 21:20 Urine Urobilinogen Normal (NORMAL) 06/11/19 21:20 Ur Leukocyte Esterase Negative (NEGATIVE) 06/11/19 21:20 Urine RBC 5-10 /HPF (0-3) A 06/11/19 21:20 Urine WBC None seen /HPF (0-5) 06/11/19 21:20 Ur Squamous Epith Cells Rare /HPF (NEGATIVE) 06/11/19 21:20 Amorphous Sediment 1+ /HPF (NEGATIVE) 06/11/19 21:20 Urine Bacteria Trace /HPF (NEGATIVE) 06/11/19 21:20 Ur Culture Indicated? No/not indicated 06/11/19 21:20 - Assessment and Plan 1: partial SBO. pseudo myxoma Peritonei . dehydration with CKD .. continue same plan .tube drainage. start liquid diet for now. repeat abdominal xray ..
--- NOTE | 2019-06-12 12:41 | RAD ---
History: Small bowel obstruction Study: KUB Comparison: Yesterday's CT scan of abdomen and pelvis Findings: The bowel gas pattern is now unremarkable without abnormal gaseous distention of large or small bowel. No urinary tract calcification is demonstrated. There are mild degenerative osteophytes in the lumbar spine. Impression: Negative Reported By:
[2019-06-13] MEDS: NS 1000 ML 1,000 ML IV SCH ×3 (03:00→21:10)
[2019-06-13] MEDS: XOPENEX 1.25 MG/3 ML NEBULE NEB SCH ×5 (05:43→20:45)
[2019-06-13] MEDS: ZOSYN VIAL 3.375 GRAMS 3.375 G in NS 100 ML IV + SPIKE MINIBAG* 100 ML IV SCH ×2 (06:10→21:10)
[2019-06-13 06:26] LABS: BASOPHILS % (AUTO) 0.1 % (0.2-1.0); EOSINOPHILS % (AUTO) 0.3 % (0.9-2.9); HEMATOCRIT 36.3 % (42.0-54.0); HEMOGLOBIN 12.3 g/dL (13.5-18.0); LYMPHOCYTES # (AUTO) 0.8 X10^3/uL (1.3-2.9); LYMPHOCYTES % (AUTO) 6.9 % (21.0-51.0); MEAN CORPUSCULAR HEMOGLOBIN 31.3 pg (27.0-34.0); MEAN CORPUSCULAR HGB CONC 33.9 g/dL (33.0-35.0); MEAN CORPUSCULAR VOLUME 92.2 fL (80.0-100.0); MEAN PLATELET VOLUME 8.2 fL (7.4-11.0); MONOCYTES % (AUTO) 17.3 % (0.0-13.0); NEUTROPHILS # (AUTO) 8.7 x10^3/uL (2.2-4.8); NEUTROPHILS % (AUTO) 75.4 % (42.0-75.0); PLATELET COUNT 265 X10^3/uL (150.0-450.0); RED BLOOD COUNT 3.94 X10^6/uL (4.7-6.0); RED CELL DISTRIBUTION WIDTH 15.4 % (11.6-16.5); WHITE BLOOD COUNT 11.5 X10^3/uL (3.6-10.0)
[2019-06-13 06:35] LABS: ALANINE AMINOTRANSFERASE 17 Units/L (12-78); ALBUMIN 2.3 g/dL (3.4-5.0); ALKALINE PHOSPHATASE 53 Units/L (46-116); ASPARTATE AMINO TRANSFERASE 17 Units/L (15-37); BLOOD UREA NITROGEN 26 mg/dL (7-18); CALCIUM 8.5 mg/dL (8.5-10.1); CARBON DIOXIDE 27.5 mmol/L (21-32); CHLORIDE 102 mmol/L (98-107); COR CA(FOR HYPOALB) 9.9 mg/dL (8.5-10.1); SODIUM 137 mmol/L (136-145); eGFR NON BLACK RACES 59 (>60)
[2019-06-13] MEDS: PROTONIX INJ 40 MG VIAL IVP SCH ×2 (09:00→21:16)
[2019-06-13] MEDS: FLONASE NASAL SPRAY ENOSTRIL SCH ×2 (09:41→21:15)
--- NOTE | 2019-06-13 17:10 | DR.PROGNOT ---
Hospital Progress Notes - Progress Note for Day of: Progress Note Date: 06/13/19 - Chief Complaint Chief Complaint: no abdominal pain .no nausea or vomiting . still having large amount of gastric drainage . had small BM last night . xray : no bowel obstruction. - Past Medical Family Social History Past Med/Fam/Surg Hx: No changes since H&P Allergies: Allergies No Known Drug Allergies Allergy (Verified 12/28/17 08:47) - Review Of Systems ROS: No change since H&P - Vital Signs Vital Signs: Temperature 99 F Pulse Rate [Apical] 75 Pulse Rate 83 Respiratory Rate 21 Blood Pressure [Left Arm] 128/64 Blood Pressure 143/73 O2 Sat by Pulse Oximetry 96 - Physical Exam Oriented: Normal Eyes: Normal Ear: Normal Nose: Normal Throat: Normal Respiratory: Normal Cardiovascular: Normal : Normal GI:Auscultation: Normal GI:Palpation: Other (distended abdomen with solid mass ( known myxoma ) ,non tender ..) GI: Tenderness: Diffuse (mild diffuse tenderness , no reound , no rigidity . BS+) Skin: Normal Musculoskeletal: Normal Psychiatric: Normal Affect: Normal Speech Pattern: Clear, Appropriate - Laboratory and Diagnostics Result Diagrams: 06/13/19 05:20 06/13/19 05:20 Labs: 06/11/19 13:11 Blood Blood Culture - Preliminary 06/11/19 13:05 Blood Blood Culture - Preliminary 06/11/19 21:09 Sputum - Expectorated Sputum Sputum Culture - Final Klebsiella Pneumoniae 06/11/19 21:09 Sputum - Expectorated Sputum - Final Laboratory WBC 11.5 X10^3/uL (3.6-10.0) H 06/13/19 05:20 RBC 3.94 X10^6/uL (4.7-6.0) L 06/13/19 05:20 Hgb 12.3 g/dL (13.5-18.0) L 06/13/19 05:20 Hct 36.3 % (42.0-54.0) L 06/13/19 05:20 MCV 92.2 fL (80.0-100.0) 06/13/19 05:20 MCH 31.3 pg (27.0-34.0) 06/13/19 05:20 MCHC 33.9 g/dL (33.0-35.0) 06/13/19 05:20 RDW 15.4 % (11.6-16.5) 06/13/19 05:20 Plt Count 265 X10^3/uL (150.0-450.0) 06/13/19 05:20 Plt Count Comment Adequate (ADEQUATE) 06/12/19 05:30 MPV 8.2 fL (7.4-11.0) 06/13/19 05:20 Neut % (Auto) 75.4 % (42.0-75.0) H 06/13/19 05:20 Lymph % (Auto) 6.9 % (21.0-51.0) L 06/13/19 05:20 [place] % (Auto) 17.3 % (0.0-13.0) H 06/13/19 05:20 Eos % (Auto) 0.3 % (0.9-2.9) L 06/13/19 05:20 Baso % (Auto) 0.1 % (0.2-1.0) L 06/13/19 05:20 Neut # (Auto) 8.7 x10^3/uL (2.2-4.8) H 06/13/19 05:20 Lymph # (Auto) 0.8 X10^3/uL (1.3-2.9) L 06/13/19 05:20 [place] # (Auto) 2.0 x10^3/uL (0.3-0.8) H 06/13/19 05:20 Eos # (Auto) 0.0 x10^3/uL (0.0-0.2) 06/13/19 05:20 Baso # (Auto) 0.0 X10^3/uL (0.0-0.1) 06/13/19 05:20 Absolute Nucleated RBC 0.0 /100WBC 06/13/19 05:20 Total Counted 100 06/12/19 05:30 Neutrophils % (Manual) 57 % (39-76) 06/12/19 05:30 Band Neutrophils % 16 % (0-10) H 06/12/19 05:30 Lymphocytes % (Manual) 10 % (13-43) L 06/12/19 05:30 Monocytes % (Manual) 15 % (4-9) H 06/12/19 05:30 Eosinophils % (Manual) 2 % (0-6) 06/12/19 05:30 Plt Morphology Comment Normal (NORMAL) 06/12/19 05:30 RBC Morphology Normal (NORMAL) 06/12/19 05:30 Sodium 137 mmol/L (136-145) 06/13/19 05:20 Corrected Sodium TNP 06/13/19 05:20 Potassium 3.7 mmol/L (3.5-5.1) 06/13/19 05:20 Chloride 102 mmol/L (98-107) 06/13/19 05:20 Carbon Dioxide 27.5 mmol/L (21-32) 06/13/19 05:20 BUN 26 mg/dL (7-18) H 06/13/19 05:20 Creatinine 1.30 mg/dL (0.70-1.30) 06/13/19 05:20 Est GFR (MDRD) Af Amer > 60 (>60) 06/13/19 05:20 Est GFR (MDRD) Non-Af 59 (>60) 06/13/19 05:20 Glucose 107 mg/dL (65-99) H 06/13/19 05:20 Lactic Acid 3.8 mmol/L (0.4-2.0) H 06/11/19 13:05 Calcium 8.5 mg/dL (8.5-10.1) 06/13/19 05:20 Corrected Calcium 9.9 mg/dL (8.5-10.1) 06/13/19 05:20 Total Bilirubin 0.80 mg/dL (0.2-1.0) 06/13/19 05:20 AST 17 Units/L (15-37) 06/13/19 05:20 ALT 17 Units/L (12-78) 06/13/19 05:20 Alkaline Phosphatase 53 Units/L (46-116) 06/13/19 05:20 Total Protein 8.0 g/dL (6.4-8.2) 06/13/19 05:20 Albumin 2.3 g/dL (3.4-5.0) L 06/13/19 05:20 Globulin 5.7 g/dL (2.5-4.5) H 06/13/19 05:20 Albumin/Globulin Ratio 0.4 Ratio (1.1-2.1) L 06/13/19 05:20 Amylase 45 Units/L (25-115) 06/11/19 13:05 Lipase 80 Units/L (73-393) 06/11/19 13:05 Specimen Type Clean catch urine 06/11/19 21:20 Urine Color Yellow (YELLOW) 06/11/19 21:20 Urine Appearance Slightly hazy (CLEAR) 06/11/19 21:20 Urine pH 5.0 (5.0 - 8.0) 06/11/19 21:20 Ur Specific [place] 1.020 (1.000-1.030) 06/11/19 21:20 Urine Protein 3+ (NEGATIVE) 06/11/19 21:20 Urine Glucose (UA) Negative (NEGATIVE) 06/11/19 21:20 Urine Ketones Negative (NEGATIVE) 06/11/19 21:20 Urine Occult Blood 5+ (NEGATIVE) 06/11/19 21:20 Urine Nitrite Negative (NEGATIVE) 06/11/19 21:20 Urine Bilirubin Negative (NEGATIVE) 06/11/19 21:20 Urine Urobilinogen Normal (NORMAL) 06/11/19 21:20 Ur Leukocyte Esterase Negative (NEGATIVE) 06/11/19 21:20 Urine RBC 5-10 /HPF (0-3) A 06/11/19 21:20 Urine WBC None seen /HPF (0-5) 06/11/19 21:20 Ur Squamous Epith Cells Rare /HPF (NEGATIVE) 06/11/19 21:20 Amorphous Sediment 1+ /HPF (NEGATIVE) 06/11/19 21:20 Urine Bacteria Trace /HPF (NEGATIVE) 06/11/19 21:20 Ur Culture Indicated? No/not indicated 06/11/19 21:20 - Assessment and Plan 1: partial SBO.(subsiding ). pseudo myxoma Peritonei . dehydration with CKD ( improving ).. will clamp gastrostomy tube and stast on full liquid and advance as tolerated .. repeat abdominal xray ..
[2019-06-14] MEDS: NS 1000 ML 1,000 ML IV SCH ×3 (03:07→18:25)
[2019-06-14] MEDS: XOPENEX 1.25 MG/3 ML NEBULE NEB SCH ×3 (05:04→20:21)
[2019-06-14] MEDS: ZOSYN VIAL 3.375 GRAMS 3.375 G in NS 100 ML IV + SPIKE MINIBAG* 100 ML IV SCH ×4 (05:30→21:14)
[2019-06-14] MEDS: PROTONIX INJ 40 MG VIAL IVP SCH ×2 (08:51→21:14)
[2019-06-14] MEDS: FLONASE NASAL SPRAY ENOSTRIL SCH ×2 (08:52→21:14)
--- NOTE | 2019-06-14 15:37 | RAD ---
Examination: KUB, two views History: SBO Comparison reference 06/12/2019 Findings: There is slight distention of scattered small and large bowel segments. There is no evidence for focal ileus, ascites or mass formation. G-tube is projected over the left upper quadrant. The lung bases are clear. Impression: No significant abnormality identified. Reported By:
--- NOTE | 2019-06-14 19:44 | DR.PROGNOT ---
Hospital Progress Notes - Progress Note for Day of: Progress Note Date: 06/14/19 - Chief Complaint Chief Complaint: no abdominal pain . was nauseated last night . tolerating diet . abdominal xray was normal . - Past Medical Family Social History Past Med/Fam/Surg Hx: No changes since H&P Allergies: Allergies No Known Drug Allergies Allergy (Verified 12/28/17 08:47) - Review Of Systems ROS: No change since H&P - Vital Signs Vital Signs: Temperature 97.8 F Pulse Rate [Apical] 75 Pulse Rate 71 Respiratory Rate 28 Blood Pressure [Left Arm] 128/64 Blood Pressure 147/78 O2 Sat by Pulse Oximetry 98 - Physical Exam Oriented: Normal Eyes: Normal Ear: Normal Nose: Normal Throat: Normal Respiratory: Normal Cardiovascular: Normal : Normal GI:Auscultation: Normal GI:Palpation: Other (distended abdomen with solid mass ( known myxoma ) ,non tender ..) GI: Tenderness: Diffuse (mild diffuse tenderness , no reound , no rigidity . BS+) Skin: Normal Musculoskeletal: Normal Psychiatric: Normal Affect: Normal Speech Pattern: Clear, Appropriate - Laboratory and Diagnostics Result Diagrams: 06/13/19 05:20 06/13/19 05:20 Labs: 06/11/19 13:11 Blood Blood Culture - Preliminary 06/11/19 13:05 Blood Blood Culture - Preliminary 06/11/19 21:09 Sputum - Expectorated Sputum Sputum Culture - Final Klebsiella Pneumoniae 06/11/19 21:09 Sputum - Expectorated Sputum - Final Laboratory WBC 11.5 X10^3/uL (3.6-10.0) H 06/13/19 05:20 RBC 3.94 X10^6/uL (4.7-6.0) L 06/13/19 05:20 Hgb 12.3 g/dL (13.5-18.0) L 06/13/19 05:20 Hct 36.3 % (42.0-54.0) L 06/13/19 05:20 MCV 92.2 fL (80.0-100.0) 06/13/19 05:20 MCH 31.3 pg (27.0-34.0) 06/13/19 05:20 MCHC 33.9 g/dL (33.0-35.0) 06/13/19 05:20 RDW 15.4 % (11.6-16.5) 06/13/19 05:20 Plt Count 265 X10^3/uL (150.0-450.0) 06/13/19 05:20 Plt Count Comment Adequate (ADEQUATE) 06/12/19 05:30 MPV 8.2 fL (7.4-11.0) 06/13/19 05:20 Neut % (Auto) 75.4 % (42.0-75.0) H 06/13/19 05:20 Lymph % (Auto) 6.9 % (21.0-51.0) L 06/13/19 05:20 [place] % (Auto) 17.3 % (0.0-13.0) H 06/13/19 05:20 Eos % (Auto) 0.3 % (0.9-2.9) L 06/13/19 05:20 Baso % (Auto) 0.1 % (0.2-1.0) L 06/13/19 05:20 Neut # (Auto) 8.7 x10^3/uL (2.2-4.8) H 06/13/19 05:20 Lymph # (Auto) 0.8 X10^3/uL (1.3-2.9) L 06/13/19 05:20 [place] # (Auto) 2.0 x10^3/uL (0.3-0.8) H 06/13/19 05:20 Eos # (Auto) 0.0 x10^3/uL (0.0-0.2) 06/13/19 05:20 Baso # (Auto) 0.0 X10^3/uL (0.0-0.1) 06/13/19 05:20 Absolute Nucleated RBC 0.0 /100WBC 06/13/19 05:20 Total Counted 100 06/12/19 05:30 Neutrophils % (Manual) 57 % (39-76) 06/12/19 05:30 Band Neutrophils % 16 % (0-10) H 06/12/19 05:30 Lymphocytes % (Manual) 10 % (13-43) L 06/12/19 05:30 Monocytes % (Manual) 15 % (4-9) H 06/12/19 05:30 Eosinophils % (Manual) 2 % (0-6) 06/12/19 05:30 Plt Morphology Comment Normal (NORMAL) 06/12/19 05:30 RBC Morphology Normal (NORMAL) 06/12/19 05:30 Sodium 137 mmol/L (136-145) 06/13/19 05:20 Corrected Sodium TNP 06/13/19 05:20 Potassium 3.7 mmol/L (3.5-5.1) 06/13/19 05:20 Chloride 102 mmol/L (98-107) 06/13/19 05:20 Carbon Dioxide 27.5 mmol/L (21-32) 06/13/19 05:20 BUN 26 mg/dL (7-18) H 06/13/19 05:20 Creatinine 1.30 mg/dL (0.70-1.30) 06/13/19 05:20 Est GFR (MDRD) Af Amer > 60 (>60) 06/13/19 05:20 Est GFR (MDRD) Non-Af 59 (>60) 06/13/19 05:20 Glucose 107 mg/dL (65-99) H 06/13/19 05:20 Lactic Acid 3.8 mmol/L (0.4-2.0) H 06/11/19 13:05 Calcium 8.5 mg/dL (8.5-10.1) 06/13/19 05:20 Corrected Calcium 9.9 mg/dL (8.5-10.1) 06/13/19 05:20 Total Bilirubin 0.80 mg/dL (0.2-1.0) 06/13/19 05:20 AST 17 Units/L (15-37) 06/13/19 05:20 ALT 17 Units/L (12-78) 06/13/19 05:20 Alkaline Phosphatase 53 Units/L (46-116) 06/13/19 05:20 Total Protein 8.0 g/dL (6.4-8.2) 06/13/19 05:20 Albumin 2.3 g/dL (3.4-5.0) L 06/13/19 05:20 Globulin 5.7 g/dL (2.5-4.5) H 06/13/19 05:20 Albumin/Globulin Ratio 0.4 Ratio (1.1-2.1) L 06/13/19 05:20 Amylase 45 Units/L (25-115) 06/11/19 13:05 Lipase 80 Units/L (73-393) 06/11/19 13:05 Specimen Type Clean catch urine 06/11/19 21:20 Urine Color Yellow (YELLOW) 06/11/19 21:20 Urine Appearance Slightly hazy (CLEAR) 06/11/19 21:20 Urine pH 5.0 (5.0 - 8.0) 06/11/19 21:20 Ur Specific [place] 1.020 (1.000-1.030) 06/11/19 21:20 Urine Protein 3+ (NEGATIVE) 06/11/19 21:20 Urine Glucose (UA) Negative (NEGATIVE) 06/11/19 21:20 Urine Ketones Negative (NEGATIVE) 06/11/19 21:20 Urine Occult Blood 5+ (NEGATIVE) 06/11/19 21:20 Urine Nitrite Negative (NEGATIVE) 06/11/19 21:20 Urine Bilirubin Negative (NEGATIVE) 06/11/19 21:20 Urine Urobilinogen Normal (NORMAL) 06/11/19 21:20 Ur Leukocyte Esterase Negative (NEGATIVE) 06/11/19 21:20 Urine RBC 5-10 /HPF (0-3) A 06/11/19 21:20 Urine WBC None seen /HPF (0-5) 06/11/19 21:20 Ur Squamous Epith Cells Rare /HPF (NEGATIVE) 06/11/19 21:20 Amorphous Sediment 1+ /HPF (NEGATIVE) 06/11/19 21:20 Urine Bacteria Trace /HPF (NEGATIVE) 06/11/19 21:20 Ur Culture Indicated? No/not indicated 06/11/19 21:20 - Assessment and Plan 1: partial SBO.(subsiding ). pseudo myxoma Peritonei . dehydration with CKD ( improving ).. if tolerating diet today will discharge in the morning and follow as out Pt.
[2019-06-15] MEDS: NS 1000 ML 1,000 ML IV SCH (01:08)
[2019-06-15] MEDS: XOPENEX 1.25 MG/3 ML NEBULE NEB SCH (05:18)
[2019-06-15 05:51] LABS: BASOPHILS % (AUTO) 0.3 % (0.2-1.0); EOSINOPHILS # (AUTO) 0.1 x10^3/uL (0.0-0.2); EOSINOPHILS % (AUTO) 1.3 % (0.9-2.9); HEMATOCRIT 29.7 % (42.0-54.0); HEMOGLOBIN 10.1 g/dL (13.5-18.0); LYMPHOCYTES # (AUTO) 0.7 X10^3/uL (1.3-2.9); LYMPHOCYTES % (AUTO) 8.1 % (21.0-51.0); MEAN CORPUSCULAR HEMOGLOBIN 31.3 pg (27.0-34.0); MEAN CORPUSCULAR VOLUME 92.1 fL (80.0-100.0); MEAN PLATELET VOLUME 7.8 fL (7.4-11.0); MONOCYTES # (AUTO) 1.9 x10^3/uL (0.3-0.8); MONOCYTES % (AUTO) 21.6 % (0.0-13.0); NEUTROPHILS % (AUTO) 68.7 % (42.0-75.0); PLATELET COUNT 249 X10^3/uL (150.0-450.0); RED BLOOD COUNT 3.22 X10^6/uL (4.7-6.0); WHITE BLOOD COUNT 8.7 X10^3/uL (3.6-10.0)
[2019-06-15 06:02] LABS: ALANINE AMINOTRANSFERASE 21 Units/L (12-78); ALBUMIN 1.9 g/dL (3.4-5.0); ALKALINE PHOSPHATASE 73 Units/L (46-116); ASPARTATE AMINO TRANSFERASE 20 Units/L (15-37); BLOOD UREA NITROGEN 7 mg/dL (7-18); CARBON DIOXIDE 28.1 mmol/L (21-32); CHLORIDE 103 mmol/L (98-107); COR CA(FOR HYPOALB) 9.7 mg/dL (8.5-10.1); CREATININE 0.83 mg/dL (0.70-1.30); SODIUM 138 mmol/L (136-145); TOTAL PROTEIN 6.4 g/dL (6.4-8.2); eGFR NON BLACK RACES > 60 (>60)
[2019-06-15] MEDS: ZOSYN VIAL 3.375 GRAMS 3.375 G in NS 100 ML IV + SPIKE MINIBAG* 100 ML IV SCH (06:02)
[2019-06-15 07:13] LABS: PLATELET MORPHOLOGY COMMENT NORMAL (NORMAL)
[2019-06-15] MEDS: FLONASE NASAL SPRAY ENOSTRIL SCH (08:39)
[2019-06-15] MEDS: PROTONIX INJ 40 MG VIAL IVP SCH (08:39)
--- NOTE | 2019-06-15 09:07 | DR.PROGNOT ---
Hospital Progress Notes - Progress Note for Day of: Progress Note Date: 06/15/19 - Chief Complaint Chief Complaint: no abdominal pain . no nausea or vomiting. tolerating diet . lab work is normal and Pt is afebrile . - Past Medical Family Social History Past Med/Fam/Surg Hx: No changes since H&P Allergies: Allergies No Known Drug Allergies Allergy (Verified 12/28/17 08:47) - Review Of Systems ROS: No change since H&P - Vital Signs Vital Signs: Temperature 97.1 F Pulse Rate [Apical] 75 Pulse Rate 67 Respiratory Rate 16 Blood Pressure [Left Arm] 128/64 Blood Pressure 142/65 O2 Sat by Pulse Oximetry 95 - Physical Exam Oriented: Normal Eyes: Normal Ear: Normal Nose: Normal Throat: Normal Respiratory: Normal Cardiovascular: Normal : Normal GI:Auscultation: Normal GI:Palpation: Other (distended abdomen with solid mass ( known myxoma ) ,non tender ..) GI: Tenderness: Diffuse (mild diffuse tenderness , no reound , no rigidity . BS+) Skin: Normal Musculoskeletal: Normal Psychiatric: Normal Affect: Normal Speech Pattern: Clear, Appropriate - Laboratory and Diagnostics Result Diagrams: 06/15/19 03:55 06/15/19 03:55 Labs: 06/11/19 13:11 Blood Blood Culture - Preliminary 06/11/19 13:05 Blood Blood Culture - Preliminary 06/11/19 21:09 Sputum - Expectorated Sputum Sputum Culture - Final Klebsiella Pneumoniae 06/11/19 21:09 Sputum - Expectorated Sputum - Final Laboratory WBC 8.7 X10^3/uL (3.6-10.0) 06/15/19 03:55 RBC 3.22 X10^6/uL (4.7-6.0) L 06/15/19 03:55 Hgb 10.1 g/dL (13.5-18.0) L D 06/15/19 03:55 Hct 29.7 % (42.0-54.0) L 06/15/19 03:55 MCV 92.1 fL (80.0-100.0) 06/15/19 03:55 MCH 31.3 pg (27.0-34.0) 06/15/19 03:55 MCHC 34.0 g/dL (33.0-35.0) 06/15/19 03:55 RDW 15.0 % (11.6-16.5) 06/15/19 03:55 Plt Count 249 X10^3/uL (150.0-450.0) 06/15/19 03:55 Plt Count Comment Adequate (ADEQUATE) 06/15/19 03:55 MPV 7.8 fL (7.4-11.0) 06/15/19 03:55 Neut % (Auto) 68.7 % (42.0-75.0) 06/15/19 03:55 Lymph % (Auto) 8.1 % (21.0-51.0) L 06/15/19 03:55 [place] % (Auto) 21.6 % (0.0-13.0) H 06/15/19 03:55 Eos % (Auto) 1.3 % (0.9-2.9) 06/15/19 03:55 Baso % (Auto) 0.3 % (0.2-1.0) 06/15/19 03:55 Neut # (Auto) 6.0 x10^3/uL (2.2-4.8) H 06/15/19 03:55 Lymph # (Auto) 0.7 X10^3/uL (1.3-2.9) L 06/15/19 03:55 [place] # (Auto) 1.9 x10^3/uL (0.3-0.8) H 06/15/19 03:55 Eos # (Auto) 0.1 x10^3/uL (0.0-0.2) 06/15/19 03:55 Baso # (Auto) 0.0 X10^3/uL (0.0-0.1) 06/15/19 03:55 Absolute Nucleated RBC 0.0 /100WBC 06/15/19 03:55 Total Counted 100 06/15/19 03:55 Neutrophils % (Manual) 71 % (39-76) 06/15/19 03:55 Band Neutrophils % 16 % (0-10) H 06/12/19 05:30 Lymphocytes % (Manual) 11 % (13-43) L 06/15/19 03:55 Monocytes % (Manual) 18 % (4-9) H 06/15/19 03:55 Eosinophils % (Manual) 2 % (0-6) 06/12/19 05:30 Plt Morphology Comment Normal (NORMAL) 06/15/19 03:55 RBC Morphology Normal (NORMAL) 06/15/19 03:55 Sodium 138 mmol/L (136-145) 06/15/19 03:55 Corrected Sodium TNP 06/15/19 03:55 Potassium 3.3 mmol/L (3.5-5.1) L 06/15/19 03:55 Chloride 103 mmol/L (98-107) 06/15/19 03:55 Carbon Dioxide 28.1 mmol/L (21-32) 06/15/19 03:55 BUN 7 mg/dL (7-18) 06/15/19 03:55 Creatinine 0.83 mg/dL (0.70-1.30) 06/15/19 03:55 Est GFR (MDRD) Af Amer > 60 (>60) 06/15/19 03:55 Est GFR (MDRD) Non-Af > 60 (>60) 06/15/19 03:55 Glucose 95 mg/dL (65-99) 06/15/19 03:55 Lactic Acid 3.8 mmol/L (0.4-2.0) H 06/11/19 13:05 Calcium 8.0 mg/dL (8.5-10.1) L 06/15/19 03:55 Corrected Calcium 9.7 mg/dL (8.5-10.1) 06/15/19 03:55 Magnesium 1.8 mg/dL (1.7-2.9) 06/15/19 03:55 Total Bilirubin 0.70 mg/dL (0.2-1.0) 06/15/19 03:55 AST 20 Units/L (15-37) 06/15/19 03:55 ALT 21 Units/L (12-78) 06/15/19 03:55 Alkaline Phosphatase 73 Units/L (46-116) 06/15/19 03:55 Total Protein 6.4 g/dL (6.4-8.2) 06/15/19 03:55 Albumin 1.9 g/dL (3.4-5.0) L 06/15/19 03:55 Globulin 4.5 g/dL (2.5-4.5) 06/15/19 03:55 Albumin/Globulin Ratio 0.4 Ratio (1.1-2.1) L 06/15/19 03:55 Amylase 45 Units/L (25-115) 06/11/19 13:05 Lipase 80 Units/L (73-393) 06/11/19 13:05 Specimen Type Clean catch urine 06/11/19 21:20 Urine Color Yellow (YELLOW) 06/11/19 21:20 Urine Appearance Slightly hazy (CLEAR) 06/11/19 21:20 Urine pH 5.0 (5.0 - 8.0) 06/11/19 21:20 Ur Specific [place] 1.020 (1.000-1.030) 06/11/19 21:20 Urine Protein 3+ (NEGATIVE) 06/11/19 21:20 Urine Glucose (UA) Negative (NEGATIVE) 06/11/19 21:20 Urine Ketones Negative (NEGATIVE) 06/11/19 21:20 Urine Occult Blood 5+ (NEGATIVE) 06/11/19 21:20 Urine Nitrite Negative (NEGATIVE) 06/11/19 21:20 Urine Bilirubin Negative (NEGATIVE) 06/11/19 21:20 Urine Urobilinogen Normal (NORMAL) 06/11/19 21:20 Ur Leukocyte Esterase Negative (NEGATIVE) 06/11/19 21:20 Urine RBC 5-10 /HPF (0-3) A 06/11/19 21:20 Urine WBC None seen /HPF (0-5) 06/11/19 21:20 Ur Squamous Epith Cells Rare /HPF (NEGATIVE) 06/11/19 21:20 Amorphous Sediment 1+ /HPF (NEGATIVE) 06/11/19 21:20 Urine Bacteria Trace /HPF (NEGATIVE) 06/11/19 21:20 Ur Culture Indicated? No/not indicated 06/11/19 21:20 - Assessment and Plan 1: partial SBO.(resolved ). pseudo myxoma Peritonei . dehydration had resolved . Pt could be d/c . will follow in 2 weeks .
[2019-06-15 10:07] VITALS: BP 155/74
== END 2019-06-15 10:45 | disposition home or self-care (01) | DRG 388 ==
LOC: ER 12:48 → ICU 17:16
PROVIDERS: ADMIT Obstetrics & Gynecology Obstetrics; ATTEND Obstetrics & Gynecology Obstetrics
DX: B96.1 Klebsiella pneumoniae [K. pneumoniae] as the cause of diseases classified elsewhere; J18.9 Pneumonia, unspecified organism; C78.6 Secondary malignant neoplasm of retroperitoneum and peritoneum; E86.0 Dehydration; Z43.1 Encounter for attention to gastrostomy; E87.1 Hypo-osmolality and hyponatremia; R79.89 Other specified abnormal findings of blood chemistry; N28.89 Other specified disorders of kidney and ureter; R10.9 Unspecified abdominal pain; R19.09 Other intra-abdominal and pelvic swelling, mass and lump; K59.00 Constipation, unspecified; K56.690 Other partial intestinal obstruction
CPT/HCPCS: 36415; 74000; 74018; 74176; 80053; 81001; 82150; 83605; 83690; 83735; 85025; 87040; 87070; 87077; 87186; 87205; 94640; 96365; 96374; 96375; 99284; A4222; C9113; J2405; J2543; J7030; J7050; S5010